=== PATIENT | male | born 1960 | race Caucasian/White ===

== ENCOUNTER 2017-01-01 08:48 | Emergency (ER) | payer OTHER ==
[~2017-01-01] VITALS: Ht 185.4 cm; Wt 70.0 kg
[~2017-01-01 08:48] MED LIST: CYCL-36 PO; IBUP800T23 PO; PERC5TAB12 PO
[2017-01-01 08:50] VITALS: BP 93/62; PULSE 109; RESP 17; TEMP 97.6; O2SAT 96
[2017-01-01 08:55] VITALS: BP 108/64; PULSE 106; RESP 20; O2SAT 99
[2017-01-01] MEDS ORDERED: HYDROmorphone HCL PF 1 MG/ML VIAL IV PUSH ONE ×3 (09:15→13:45)
[2017-01-01] MEDS ORDERED: SODIUM CHLORIDE 0.9% FLUSH 10 ML FLUSH IV FLUSH PRN (09:15)
[2017-01-01] MEDS ORDERED: ONDANSETRON HCL 4 MG/2 ML VIAL IV PUSH ONE (09:15)
--- NOTE | 2017-01-01 09:19 | PD ---
HPI Chief Complaint: Abdominal Pain Time Seen by Provider: 09:13 Travel History International Travel<30 days: No Contact w/Intl Traveler<30days: No Traveled to known affect area: No History of Present Illness HPI 56-year-old male with history of colon cancer diagnosed 2 months ago, not yet started on chemotherapy, presents to the ER today because of one and half weeks history of increased abdominal bloating, and 8 out of 10 abdominal pain starting today, nausea. He denies any vomiting, fevers, or other symptoms. He has not noticed any black stools or blood in the stools. He denies any other issues. Modifying Factors: None Associated Signs & Symptoms: Increased abdominal bloating and pain Risk Factors: Colon cancer recently diagnosed, stage IV PFSH Past Medical History Cancer: Yes (COLON) Diminished Hearing: No Musculoskeletal: Yes (BACK FX ) Tetanus Vaccination: < 5 Years Influenza Vaccination: No Past Surgical History Surgical History: No Previous Surgery Social History Alcohol Use: No Tobacco Use: No Substance Use: No Allergies-Medications (Allergen,Severity, Reaction): Coded Allergies: No Known Allergies (Unverified , 01/01/17) Reported Meds & Prescriptions Reported Meds & Active Scripts Active No Active Prescriptions or Reported Medications Review of Systems Except as stated in HPI: all other systems reviewed are Neg Physical Exam Narrative GENERAL: Middle age white male patient who is currently awake, alert, oriented 3. In mild distress. SKIN: Focused skin assessment warm/dry. HEAD: Atraumatic. Normocephalic. EYES: Pupils equal and round. No scleral icterus. No injection or drainage. ENT: No nasal bleeding or discharge. Mucous membranes pink and moist. NECK: Trachea midline. No JVD. CARDIOVASCULAR: Regular rate and rhythm. No murmur appreciated. RESPIRATORY: No accessory muscle use. Clear to auscultation. Breath sounds equal bilaterally. GASTROINTESTINAL: Abdomen diffusely tender without guarding or rebound, tensely distended. MUSCULOSKELETAL: No obvious deformities. No clubbing. No cyanosis. No edema. NEUROLOGICAL: Awake and alert. No obvious cranial nerve deficits. Motor grossly within normal limits. Normal speech. PSYCHIATRIC: Appropriate mood and affect; insight and judgment normal. Data Data Last Documented VS Vital Signs Date Time Temp Pulse Resp B/P Pulse Ox O2 Delivery O2 Flow Rate FiO2 01/01/17 13:44 98.3 111 16 105/71 96 Nasal Cannula 2 Orders Complete Blood Count With Diff (01/01/17 09:03) Comprehensive Metabolic Panel (01/01/17 09:03) Lipase (01/01/17 09:03) Urinalysis - C+S If Indicated (01/01/17 09:03) Iv Access Insert/Monitor (01/01/17 09:03) Ecg Monitoring (01/01/17 09:03) Oximetry (01/01/17 09:03) Sodium Chloride 0.9% Flush (Ns Flush) (01/01/17 09:15) Ct Abd/Pel W Iv Contrast(Rout) (01/01/17 09:13) Hydromorphone Pf Inj (Dilaudid Pf Inj) (01/01/17 09:15) Ondansetron Inj (Zofran Inj) (01/01/17 09:15) Sodium Chlorid 0.9% 500 Ml Inj (Ns 500 M (01/01/17 09:30) Hydromorphone Pf Inj (Dilaudid Pf Inj) (01/01/17 10:00) Iohexol 350 Inj (Omnipaque 350 Inj) (01/01/17 10:49) Hydromorphone Pf Inj (Dilaudid Pf Inj) (01/01/17 13:45) Labs Laboratory Tests Test 01/01/17 01/01/17 09:14 13:00 White Blood Count 4.2 TH/MM3 Red Blood Count 4.40 MIL/MM3 Hemoglobin 12.4 GM/DL Hematocrit 38.8 % Mean Corpuscular Volume 88.2 FL Mean Corpuscular Hemoglobin 28.3 PG Mean Corpuscular Hemoglobin 32.1 % Concent Red Cell Distribution Width 17.6 % Platelet Count 631 TH/MM3 Mean Platelet Volume 8.5 FL Neutrophils (%) (Auto) 48.0 % Lymphocytes (%) (Auto) 36.6 % Monocytes (%) (Auto) 8.8 % Eosinophils (%) (Auto) 5.6 % Basophils (%) (Auto) 1.0 % Neutrophils # (Auto) 2.0 TH/MM3 Lymphocytes # (Auto) 1.6 TH/MM3 Monocytes # (Auto) 0.4 TH/MM3 Eosinophils # (Auto) 0.2 TH/MM3 Basophils # (Auto) 0.0 TH/MM3 CBC Comment DIFF FINAL Differential Comment Sodium Level 134 MEQ/L Potassium Level 4.3 MEQ/L Chloride Level 101 MEQ/L Carbon Dioxide Level 20.8 MEQ/L Anion Gap 12 MEQ/L Blood Urea Nitrogen 7 MG/DL Creatinine 0.85 MG/DL Estimat Glomerular Filtration 93 ML/MIN Rate Random Glucose 109 MG/DL Calcium Level 9.6 MG/DL Total Bilirubin 1.4 MG/DL Aspartate Amino Transf 120 U/L (AST/SGOT) Alanine Aminotransferase 44 U/L (ALT/SGPT) Alkaline Phosphatase 688 U/L Total Protein 8.3 GM/DL Albumin 2.7 GM/DL Lipase 87 U/L Urine Color YELLOW Urine Turbidity CLEAR Urine pH 6.5 Urine Specific [place] GREATER THAN 1.050 Urine Protein 30 mg/dL Urine Glucose (UA) NEG mg/dL Urine Ketones NEG mg/dL Urine Occult Blood NEG Urine Nitrite NEG Urine Bilirubin NEG Urine Urobilinogen LESS THAN 2.0 MG/DL Urine Leukocyte Esterase NEG Urine RBC 3 /hpf Urine WBC LESS THAN 1 /hpf Urine Squamous Epithelial <1 /hpf Cells Urine Mucus FEW /lpf Microscopic Urinalysis Comment CULT NOT INDICATED MDM Medical Decision Making Medical Screen Exam Complete: Yes Emergency Medical Condition: Yes Medical Record Reviewed: Yes Interpretation(s) Laboratory Tests Test 01/01/17 01/01/17 09:14 13:00 Red Blood Count 4.40 MIL/MM3 (4.50-5.90) Hemoglobin 12.4 GM/DL (13.0-17.0) Hematocrit 38.8 % (39.0-51.0) Red Cell Distribution Width 17.6 % (11.6-17.2) Platelet Count 631 TH/MM3 (150-450) Monocytes (%) (Auto) 8.8 % (0.0-8.0) Eosinophils (%) (Auto) 5.6 % (0.0-4.0) Sodium Level 134 MEQ/L (136-145) Carbon Dioxide Level 20.8 MEQ/L (21.0-32.0) Random Glucose 109 MG/DL (74-106) Total Bilirubin 1.4 MG/DL (0.2-1.0) Aspartate Amino Transf 120 U/L (15-37) (AST/SGOT) Alkaline Phosphatase 688 U/L (45-117) Total Protein 8.3 GM/DL (6.4-8.2) Albumin 2.7 GM/DL (3.4-5.0) Urine Specific [place] GREATER THAN 1.050 (1.002-1.035) Urine Protein 30 mg/dL (NEG-TRACE) Urine Mucus FEW /lpf (OCC) Last 24 hours Impressions Abdomen/Pelvis CT 01/01/17 0913 Signed Impressions: Service Date/Time: Sunday, January 01, 2017 10:26 - CONCLUSION: Extensive metastatic disease to the lungs and liver with slight ascites and haziness of the mesentery as above. Steven Little MD Differential Diagnosis Increased abdominal bloating and painobstruction versus worsening ascites versus other acute intra-abdominal processes Narrative Course Lab work shows LFT elevations. CAT scan shows extensive metastases to the liver and lungs with a notable ascites. Findings were discussed with the patient and patient had been given IV fluids, pain medications and nausea medications in the ER. I have also talked to the patient regarding the ascites and possible need for drainage. At this point, have talked to the patient regarding admission for observation and pain control versus close outpatient follow-up. After receiving pain medication at 1 PM, he is feeling much improved , and states that he would prefer to follow-up as an outpatient with his oncologist. He should return for any worsening in pain, vomiting, fevers, or new symptoms as needed. The plan has discussed with him and he states understanding wants to follow-up as an outpatient. Diagnosis Primary Impression: Abdominal pain Additional Impression: Ascites Med/Other Pt SpecificInfo: Prescription(s) given Scripts Tramadol 50 Mg Tab50 Mg PO Q6H PRN (PAIN) #20 TAB Ref 0 Prov:Jorden Moore MD 01/01/17 Disposition: 01 DISCHARGE HOME Condition: Stable Jorden Moore MD Jan 01, 2017 09:19
[2017-01-01] MEDS ORDERED: SODIUM CHLORID 0.9% 500 ML INJ 500 ML IV ONE (09:30)
[2017-01-01 09:36] LABS: EOSINOPHIL # 0.2 TH/MM3 (0-0.4); EOSINOPHIL % 5.6 % (0.0-4.0); HEMATOCRIT 38.8 % (39.0-51.0); HEMO FLAGS DIFF FINAL; LYMPH % 36.6 % (9.0-44.0); LYMPHOCYTE # 1.6 TH/MM3 (1.0-4.8); MEAN CELL VOLUME 88.2 FL (80.0-100.0); MEAN CORPUSCULAR HEMOGLOBIN 28.3 PG (27.0-34.0); MEAN CORPUSCULAR HGB CONC 32.1 % (32.0-36.0); MONO % 8.8 % (0.0-8.0); PLATELET COUNT 631 TH/MM3 (150-450); RED CELL DISTRIBUTION WIDTH 17.6 % (11.6-17.2); WHITE BLOOD COUNT 4.2 TH/MM3 (4.0-11.0)
[2017-01-01 10:10] LABS: ALKALINE PHOSPHATASE 688 U/L (45-117); ALT (GPT) 44 U/L (12-78); ANION GAP 12 MEQ/L (5-15); AST (GOT) 120 U/L (15-37); BICARBONATE 20.8 MEQ/L (21.0-32.0); BLOOD UREA NITROGEN 7 MG/DL (7-18); CHLORIDE 101 MEQ/L (98-107); GLOMERULAR FILTRATION RATE 93 ML/MIN (>89); SODIUM (NA) 134 MEQ/L (136-145); TOTAL BILIRUBIN ADULT 1.4 MG/DL (0.2-1.0)
[2017-01-01 10:12] LABS: POTASSIUM 4.3 MEQ/L (3.5-5.1)
[2017-01-01 10:28] VITALS: BP 112/70; PULSE 114; RESP 16; TEMP 98.4; O2SAT 96
[2017-01-01] MEDS ORDERED: IOHEXOL 350 MG/ML 10 ML VIAL (for RAD DIAG) IV ONE (10:49)
--- NOTE | 2017-01-01 11:02 | RADRPT ---
EXAM DATE/TIME: 01/01/2017 10:26 [facility] COMPARISON: No previous studies available for comparison. INDICATIONS : Abdominal pain, nausea, general malaise. IV CONTRAST: 91 cc Omnipaque 350 (iohexol) IV ORAL CONTRAST: Prescribed oral contrast ingested. RADIATION DOSE: 9.96 CTDIvol (mGy) MEDICAL HISTORY : Carcinoma, colon. SURGICAL HISTORY : ENCOUNTER: Initial ACUITY: 1 day PAIN SCALE: 2/10 LOCATION: TECHNIQUE: Volumetric scanning of the abdomen and pelvis was performed. Using automated exposure control and ad justment of the mA and/or kV according to patient size, radiation dose was kept as low as reasonably achievable to obtain optimal diagnostic quality images. FINDINGS: There are too numerous to count nodules in both lung bases characteristic of metastatic disease the largest in the right lower lobe measures 1.2 cm in size. The liver is riddled with metastatic dis ease the largest measures 14 cm in size in the right hepatic lobe. There is ascites throughout the ab domen and pelvis to a slight degree possibly due to passive congestion with haziness of the mesentery , however early carcinomatosis is difficult to exclude. Questionable gallstones are present. The sple en, pancreas, kidneys, adrenals are unremarkable. CONCLUSION: Extensive metastatic disease to the lungs and liver with slight ascites and haziness of the mesentery as above. Steven Little MD on January 01, 2017 at 10:55 Board Certified Radiologist. This report was verified electronically.
[2017-01-01 13:21] LABS: BLOOD, URINE NEG (NEG); COMMENT (UR) CULT NOT INDICATED; CULTURE IF INDICATED CULT NOT INDICATED; GLUCOSE,URINE NEG (NEG); KETONE, URINE NEG (NEG); MUCUS URINE FEW /lpf (OCC); NITRITE,URINE NEG (NEG); PH, URINE 6.5 (5.0-8.5); SQUAMOUS EPITHELIAL CELL URINE <1 /hpf (0-5); URINE COLOR YELLOW (YELLW/STRAW)
[2017-01-01 13:44] VITALS: BP 105/71; PULSE 111; RESP 16; TEMP 98.3; O2SAT 96
[2017-01-01] MEDS ORDERED: TRAM50TA PO (14:02)
[2017-01-01] MEDS ORDERED: ZOFR4TAB3 SL (14:04)
[2017-01-01 14:47] VITALS: RESP 20
== END 2017-01-01 14:49 | disposition home or self-care (01) ==
LOC: NEPE 08:48
DX: C18.9 Malignant neoplasm of colon, unspecified (principal); C78.7 Secondary malignant neoplasm of liver and intrahepatic bile duct; C78.00 Secondary malignant neoplasm of unspecified lung
CPT/HCPCS: 74177; 80053; 81001; 83690; 85025; 96361; 96374; 96375; 96376; 99284; J1170; J2405; J7040; Q9967

== ENCOUNTER 2017-01-04 11:34 | Inpatient (IN) | payer OTHER ==
[2017-01-04] VITALS (7 sets, daily range): BP systolic 130–154; BP diastolic 86–93; PULSE 80–120; RESP 16–18; TEMP 97.7; O2SAT 92–98
[~2017-01-04] VITALS: Ht 185.4 cm; Wt 68.0 kg
[~2017-01-04 11:34] MED LIST changes: -CYCL-36 PO; -IBUP800T23 PO; -PERC5TAB12 PO; +TRAM50TA PO; +ZOFR4TAB3 SL
[2017-01-04] MEDS ORDERED: MORPHINE SULFATE 4 MG/ML INJ IV PUSH ONE (15:30)
[2017-01-04] MEDS ORDERED: SODIUM CHLORIDE 0.9% FLUSH 10 ML FLUSH IV FLUSH PRN ×2 (15:30→18:45)
[2017-01-04] MEDS ORDERED: ONDANSETRON HCL 4 MG/2 ML VIAL IVP ONE (15:30)
--- NOTE | 2017-01-04 15:41 | PD ---
HPI Chief Complaint: Abdominal Pain Time Seen by Provider: 15:19 Travel History International Travel<30 days: No Contact w/Intl Traveler<30days: No Traveled to known affect area: No History of Present Illness HPI The patient is a 56-year-old male who presents emergency department for lower abdominal pain and distention. The patient has a recent diagnosis of stage IV colon cancer via colonoscopy that was performed in [place], [place]. 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 However, the patient states he must come to [facility] for emergency care based on his insurance. The patient complains of increasing abdominal pain and distention, was advised last week when he was evaluated in the emergency Department that he may need to undergo paracentesis. Patient notes decreasing appetite, difficulty eating secondary to fullness, and increasing abdominal girth and distention. The patient states he is scheduled to start chemotherapy, oral, with his oncologist in the near future. The patient denies any fever, chills, or sweats. Symptoms are moderate, possibly exacerbated by history of cancer, and there are no current alleviating factors. PFSH Past Medical History Cancer: Yes (COLON) Diminished Hearing: No Musculoskeletal: Yes (BACK FX ) Social History Alcohol Use: No Tobacco Use: No Substance Use: No Allergies-Medications (Allergen,Severity, Reaction): Coded Allergies: No Known Allergies (Unverified , 01/04/17) Reported Meds & Prescriptions Reported Meds & Active Scripts Active Tramadol (Tramadol HCl) 50 Mg Tab 50 Mg PO Q6H PRN Review of Systems Except as stated in HPI: all other systems reviewed are Neg General / Constitutional: Positive: Weight Loss, No: Fever Cardiovascular: No: Chest Pain or Discomfort Respiratory: No: Shortness of Breath Gastrointestinal: Positive: Nausea, Abdominal Pain, Loss of Appetite, No: Vomiting, Diarrhea Musculoskeletal: Positive: Weakness, Edema Neurologic: Positive: Weakness, No: Dizziness Physical Exam Narrative GENERAL: Awake, alert, pleasant 56-year-old male who appears his stated age and is in no acute respiratory distress. SKIN: Focused skin assessment warm/dry. Mild jaundice. HEAD: Atraumatic. Normocephalic. EYES: Pupils equal and round. Mild icterus. ENT: No nasal bleeding or discharge. Mucous membranes pink and moist. NECK: Trachea midline. No JVD. CARDIOVASCULAR: Regular, tachycardic with a heart rate of 115. RESPIRATORY: No accessory muscle use. Clear to auscultation. Breath sounds equal bilaterally. GASTROINTESTINAL: Abdomen slightly distended, enlarged liver border. Positive fluid wave. MUSCULOSKELETAL: No obvious deformities. No clubbing. No cyanosis. Minimal edema. NEUROLOGICAL: Awake and alert. No obvious cranial nerve deficits. Motor grossly within normal limits. Normal speech. PSYCHIATRIC: Appropriate mood and affect; insight and judgment normal. Data Data Last Documented VS Vital Signs Date Time Temp Pulse Resp B/P Pulse Ox O2 Delivery O2 Flow Rate FiO2 01/04/17 16:36 118 16 154/89 96 Room Air 01/04/17 11:36 97.7 Orders Complete Blood Count With Diff (01/04/17 15:27) Comprehensive Metabolic Panel (01/04/17 15:27) Lipase (01/04/17 15:27) Prothrombin Time / Inr (Pt) (01/04/17 15:27) Act Partial Throm Time (Ptt) (01/04/17 15:27) Urinalysis - C+S If Indicated (01/04/17 15:27) Iv Access Insert/Monitor (01/04/17 15:27) Ecg Monitoring (01/04/17 15:27) Oximetry (01/04/17 15:27) Morphine Inj (Morphine Inj) (01/04/17 15:30) Ondansetron Inj (Zofran Inj) (01/04/17 15:30) Sodium Chloride 0.9% Flush (Ns Flush) (01/04/17 15:30) Ed Poc Ultrasound (01/04/17 15:27) Us Abdomen Lower Limited (01/04/17 ) Blood Culture (01/04/17 16:37) Lactic Acid (01/04/17 16:37) Ceftriaxone Inj (Rocephin Inj) (01/04/17 16:45) Sodium Chlor 0.9% 1000 Ml Inj (Ns 1000 M (01/04/17 17:00) Labs Laboratory Tests Test 01/04/17 15:35 White Blood Count 21.3 TH/MM3 Red Blood Count 4.74 MIL/MM3 Hemoglobin 13.4 GM/DL Hematocrit 41.7 % Mean Corpuscular Volume 88.1 FL Mean Corpuscular Hemoglobin 28.2 PG Mean Corpuscular Hemoglobin 32.1 % Concent Red Cell Distribution Width 17.2 % Platelet Count 624 TH/MM3 Mean Platelet Volume 7.8 FL Neutrophils (%) (Auto) 81.7 % Lymphocytes (%) (Auto) 7.4 % Monocytes (%) (Auto) 10.0 % Eosinophils (%) (Auto) 0.6 % Basophils (%) (Auto) 0.3 % Neutrophils # (Auto) 17.4 TH/MM3 Lymphocytes # (Auto) 1.6 TH/MM3 Monocytes # (Auto) 2.1 TH/MM3 Eosinophils # (Auto) 0.1 TH/MM3 Basophils # (Auto) 0.1 TH/MM3 CBC Comment DIFF FINAL Differential Comment Prothrombin Time 13.6 SEC Prothromb Time International 1.2 RATIO Ratio Activated Partial 29.1 SEC Thromboplast Time Sodium Level 130 MEQ/L Potassium Level 5.2 MEQ/L Chloride Level 95 MEQ/L Carbon Dioxide Level 22.8 MEQ/L Anion Gap 12 MEQ/L Blood Urea Nitrogen 31 MG/DL Creatinine 0.93 MG/DL Estimat Glomerular Filtration 83 ML/MIN Rate Random Glucose 82 MG/DL Calcium Level 11.6 MG/DL Protein Corrected Calcium 10.5 MG/DL Total Bilirubin 2.7 MG/DL Aspartate Amino Transf 301 U/L (AST/SGOT) Alanine Aminotransferase 130 U/L (ALT/SGPT) Alkaline Phosphatase 378 U/L Total Protein 8.8 GM/DL Albumin 2.6 GM/DL Lipase 77 U/L [facility] Medical Decision Making Medical Screen Exam Complete: Yes Emergency Medical Condition: Yes Medical Record Reviewed: Yes Interpretation(s) Laboratory Tests Test 01/04/17 15:35 White Blood Count 21.3 TH/MM3 Red Blood Count 4.74 MIL/MM3 Hemoglobin 13.4 GM/DL Hematocrit 41.7 % Mean Corpuscular Volume 88.1 FL Mean Corpuscular Hemoglobin 28.2 PG Mean Corpuscular Hemoglobin 32.1 % Concent Red Cell Distribution Width 17.2 % Platelet Count 624 TH/MM3 Mean Platelet Volume 7.8 FL Neutrophils (%) (Auto) 81.7 % Lymphocytes (%) (Auto) 7.4 % Monocytes (%) (Auto) 10.0 % Eosinophils (%) (Auto) 0.6 % Basophils (%) (Auto) 0.3 % Neutrophils # (Auto) 17.4 TH/MM3 Lymphocytes # (Auto) 1.6 TH/MM3 Monocytes # (Auto) 2.1 TH/MM3 Eosinophils # (Auto) 0.1 TH/MM3 Basophils # (Auto) 0.1 TH/MM3 CBC Comment DIFF FINAL Differential Comment Prothrombin Time 13.6 SEC Prothromb Time International 1.2 RATIO Ratio Activated Partial 29.1 SEC Thromboplast Time Sodium Level 130 MEQ/L Potassium Level 5.2 MEQ/L Chloride Level 95 MEQ/L Carbon Dioxide Level 22.8 MEQ/L Anion Gap 12 MEQ/L Blood Urea Nitrogen 31 MG/DL Creatinine 0.93 MG/DL Estimat Glomerular Filtration 83 ML/MIN Rate Random Glucose 82 MG/DL Calcium Level 11.6 MG/DL Protein Corrected Calcium 10.5 MG/DL Total Bilirubin 2.7 MG/DL Aspartate Amino Transf 301 U/L (AST/SGOT) Alanine Aminotransferase 130 U/L (ALT/SGPT) Alkaline Phosphatase 378 U/L Total Protein 8.8 GM/DL Albumin 2.6 GM/DL Lipase 77 U/L Differential Diagnosis Differential diagnosis includes ascites, colon cancer, hypoalbuminemia, hepatic dysfunction, cirrhosis, liver failure, renal failure. Narrative Course IV was established, labs are drawn and sent, and the patient was placed on cardiac telemetry monitoring and continuous pulse oximetry monitoring. Bedside ultrasound was performed which does reveal free fluid within the abdomen consistent with ascites. Therefore, formal ultrasound was ordered to evaluate if there was enough fluid for paracentesis. The patient was administer morphine and Zofran for his symptoms. The patient's white count is elevated at 21.3, AST nail tear elevated. Patient's BUN is 31, creatinine less than 1, consistent with dehydration. The patient does have ascites, has an elevated white count but no fever. However, does have abdominal pain, possibility of spontaneous bacterial peritonitis. Therefore, blood culture and lactic acid were sent to lab. Patient was administered Rocephin 2 g intravenously. I discussed the patient with the lighting engineering technician he states there is mild ascites, but not enough ascites for paracentesis by interventional radiology. Therefore, patient will need Rocephin until blood cultures have grown out. The on-call medical service was paged for admission. Procedures Procedure Narrative Bedside ultrasound was performed using a curvilinear probe. The patient had free fluid consistent with ascites an enlarged liver on ultrasound. The patient tolerated the procedure without difficulty and there was no obvious complications. Sepsis Criteria SIRS Criteria (2 or more): Heart rate over 90, WBC > 65940, < 4000 or > 10% bands Criteria Outcome: Meets SIRS criteria Physician Communication Physician Communication The on-call medical service was paged for admission. I discussed the patient with Dr. La who agrees with admission to Dr. Hong. Diagnosis Primary Impression: Abdominal pain Qualified Code: R10.84 - Generalized abdominal pain Additional Impressions: Ascites Qualified Code: R18.0 - Malignant ascites SIRS (systemic inflammatory response syndrome) Admitting Information Admitting Physician Requests: Admit Condition: Stable Bill Crenshaw MD Jan 04, 2017 15:41
[2017-01-04 16:01] LABS: AUTOMATED NEUTROPHIL # 17.4 TH/MM3 (1.8-7.7); BASOPHIL # 0.1 TH/MM3 (0-0.2); BASOPHIL % 0.3 % (0.0-2.0); EOSINOPHIL # 0.1 TH/MM3 (0-0.4); EOSINOPHIL % 0.6 % (0.0-4.0); HEMATOCRIT 41.7 % (39.0-51.0); HEMO FLAGS DIFF FINAL; LYMPH % 7.4 % (9.0-44.0); LYMPHOCYTE # 1.6 TH/MM3 (1.0-4.8); MEAN CELL VOLUME 88.1 FL (80.0-100.0); MEAN CORPUSCULAR HEMOGLOBIN 28.2 PG (27.0-34.0); MEAN CORPUSCULAR HGB CONC 32.1 % (32.0-36.0); NEUT % 81.7 % (16.0-70.0); PLATELET COUNT 624 TH/MM3 (150-450); RED BLOOD COUNT 4.74 MIL/MM3 (4.50-5.90); RED CELL DISTRIBUTION WIDTH 17.2 % (11.6-17.2); WHITE BLOOD COUNT 21.3 TH/MM3 (4.0-11.0)
[2017-01-04 16:14] LABS: APTT (PATIENT) 29.1 SEC (24.3-30.1); INTERNATIONAL NORMALIZED RATIO 1.2 RATIO; PROTHROMBIN TIME - PATIENT 13.6 SEC (9.8-11.6)
[2017-01-04 16:29] LABS: BICARBONATE 22.8 MEQ/L (21.0-32.0); CALCIUM-PROTEIN CORRECTED 10.5 MG/DL (8.5-10.1); POTASSIUM 5.2 MEQ/L (3.5-5.1); TOTAL BILIRUBIN ADULT 2.7 MG/DL (0.2-1.0)
[2017-01-04] MEDS ORDERED: cefTRIAXone INJ 2,000 MG in SODIUM CHLORIDE 0.9% INJ 100 ML IV ONE (16:45)
[2017-01-04] MEDS ORDERED: SODIUM CHLOR 0.9% 1000 ML INJ 1,000 ML IV ONE (17:00)
--- NOTE | 2017-01-04 17:08 | RADRPT ---
EXAM DATE/TIME: 01/04/2017 16:40 [facility] COMPARISON: CT ABDOMEN & PELVIS W CONTRAST, January 01, 2017, 10:26. INDICATIONS : Ascites. Metastatic disease with known lung and liver metastases. MEDICAL HISTORY : Ascites. Stage IV colon cancer with mets to liver. Back fracture. SURGICAL HISTORY : None. ENCOUNTER: Initial ACUITY: 1 day PAIN SCORE: 10/10 LOCATION: Abdomen. AREA EVALUATED: Abdominal quadrants. FINDINGS: Imaging of the abdomen and pelvis was performed to evaluate for ascites for possible paracentesis. A small amount of ascitic fluid is present with no large pockets. The liver is again noted to be enlarg ed and heterogeneous with multiple ill-defined masses. CONCLUSION: 1. Small amount of ascitic fluid present. 2. Enlarged liver with metastatic disease. Anthony Gallegos MD on January 04, 2017 at 17:05 Board Certified Radiologist. This report was verified electronically.
--- NOTE | 2017-01-04 18:00 | HHI.HP ---
[facility] Service Family Medicine Primary Care Physician Porter Lares MD Admission Diagnosis SIRS, abdominal pain, ascites, rule out SBP Diagnoses: International Travel<30 Days: No Contact w/Intl Traveler<30days: No Known Affected Area: No History of Present Illness This is a 56-year-old male newly diagnosed with stage IV colon cancer approximately 1.5 months ago. 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 He has known metastatic disease to his lungs and liver. He has had constant abdominal pain since being diagnosed and has been taking tramadol and Percocets to control his pain. He was recently evaluated at [facility] on January 01 with the complaint of 8 out of 10 abdominal pain and nausea. At that time a CT abdomen and pelvis was performed which showed extensive metastatic disease to the lungs and liver with slight ascites. He states his pain has been getting worse over the past couple of days. It's a constant 7 out of 10 nonradiating pain. He has not had a bowel movement in 3 days. He typically has a bowel movement daily. He states he is passing gas, but is not as much as he should be. He denies nausea or vomiting. No fever or chills. However, he does have persistent night sweats. He does have a living will and has filled out a 5 wishes document and he states he gave this to [facility] to be scanned into the EMR. (Asad La MD R2) Review of Systems Constitutional: COMPLAINS OF: Night Sweats, DENIES: Fever, Chills Eyes: DENIES: Blurred vision, Diplopia Respiratory: DENIES: Apneas, Cough Cardiovascular: DENIES: Chest pain, Palpitations Gastrointestinal: COMPLAINS OF: Abdominal pain, Constipation, DENIES: Black stools, Bloody stools, Diarrhea, Nausea, Vomiting Neurologic: DENIES: Abnormal gait, Headache Psychiatric: COMPLAINS OF: Anxiety, DENIES: Confusion (Asad La MD R2) Past Family Social History Past Medical History Stage 4 colon cancer (Oncologist- Dr. Mccann); GI is Dr. Mortensen - colonoscopy 1.5 weeks ago, tumor in colon. Diagnosed in 1.5 months ago. 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 Lives in [place] with mother. Brother Clement is here as well. Tobacco 1/4 PPD from age [age]. Alcohol- none recently. (Asad La MD R2) Physical Exam Vital Signs Vital Signs Date Time Temp Pulse Resp B/P Pulse Ox O2 Delivery O2 Flow Rate FiO2 01/04/17 16:36 118 16 154/89 96 Room Air 01/04/17 15:36 114 16 130/93 96 Room Air 01/04/17 15:32 120 18 97 Room Air 01/04/17 11:36 97.7 117 18 136/86 97 Physical Exam GENERAL: This is a pleasant white male. Cachectic appearing. Sitting upright. Distended abdomen. No acute distress. SKIN: No rashes, ecchymoses or lesions. Cool and dry. HEAD: Atraumatic. Normocephalic. No temporal or scalp tenderness. EYES: Pupils equal round and reactive. Extraocular motions intact. No scleral icterus. No injection or drainage. ENT: Nose without bleeding, purulent drainage or septal hematoma. Throat without erythema, tonsillar hypertrophy or exudate. Uvula midline. Airway patent. NECK: Trachea midline. No JVD or lymphadenopathy. Supple, nontender, no meningeal signs. CARDIOVASCULAR: Tachycardic rate and rhythm without murmurs, gallops, or rubs. RESPIRATORY: Clear to auscultation. Breath sounds equal bilaterally. No wheezes , rales, or rhonchi. GASTROINTESTINAL: Abdomen moderately distended. Nontender after morphine. No guarding or rebound. Bowel sounds present. MUSCULOSKELETAL: Extremities without clubbing, cyanosis, or edema. No joint tenderness, effusion, or edema noted. No calf tenderness. Negative Homans sign bilaterally. NEUROLOGICAL: Awake and alert. Cranial nerves II through XII intact. Motor and sensory grossly within normal limits. Five out of 5 muscle strength in all muscle groups. Normal speech. Laboratory Laboratory Tests Test 01/04/17 01/04/17 15:35 17:23 White Blood Count 21.3 Red Blood Count 4.74 Hemoglobin 13.4 Hematocrit 41.7 Mean Corpuscular Volume 88.1 Mean Corpuscular Hemoglobin 28.2 Mean Corpuscular Hemoglobin 32.1 Concent Red Cell Distribution Width 17.2 Platelet Count 624 Mean Platelet Volume 7.8 Neutrophils (%) (Auto) 81.7 Lymphocytes (%) (Auto) 7.4 Monocytes (%) (Auto) 10.0 Eosinophils (%) (Auto) 0.6 Basophils (%) (Auto) 0.3 Neutrophils # (Auto) 17.4 Lymphocytes # (Auto) 1.6 Monocytes # (Auto) 2.1 Eosinophils # (Auto) 0.1 Basophils # (Auto) 0.1 CBC Comment DIFF FINAL Differential Comment Prothrombin Time 13.6 Prothromb Time International 1.2 Ratio Activated Partial 29.1 Thromboplast Time Sodium Level 130 Potassium Level 5.2 Chloride Level 95 Carbon Dioxide Level 22.8 Anion Gap 12 Blood Urea Nitrogen 31 Creatinine 0.93 Estimat Glomerular Filtration 83 Rate Random Glucose 82 Calcium Level 11.6 Protein Corrected Calcium 10.5 Total Bilirubin 2.7 Aspartate Amino Transf 301 (AST/SGOT) Alanine Aminotransferase 130 (ALT/SGPT) Alkaline Phosphatase 378 Total Protein 8.8 Albumin 2.6 Lipase 77 Lactic Acid Level 2.2 Date/Time Procedure Status Source Growth 01/04/17 17:27 Aerobic Blood Culture Received Blood Peripheral Pending 01/04/17 17:27 Anaerobic Blood Culture Received Blood Peripheral Pending (Asad La MD R2) Result Diagram: 01/04/17 1535 01/04/17 1535 Imaging Last Impressions Abdomen Ultrasound 01/04/17 0000 Signed Impressions: Service Date/Time: Wednesday, January 04, 2017 16:40 - CONCLUSION: 1. Small amount of ascitic fluid present. 2. Enlarged liver with metastatic disease. Anthony Gallegos MD (Asad La MD R2) Assessment and Plan Assessment and Plan 56-year-old male with known stage IV metastatic colon cancer to his lungs and liver presents with intractable abdominal pain, ascites, leukocytosis. Concern is for small bowel obstruction versus spontaneous bacterial peritonitis versus other. Treatment as below. Code Status Full Discussed Condition With Dr. Gely Crenshaw (Asad La MD R2) Attending Attestation THIS CASE WAS DISCUSSED WITH THE RESIDENT PHYSICIANS. I HAVE REVIEWED THE RECORD AND AGREE WITH THE ABOVE NOTE AND PLAN OF CARE WAS DISCUSSED. I HAVE AUTHORIZED THE ORDER FOR ADMISSION TO AN IN-PATIENT STATUS. (Larry Hong MD) Problem List: (1) Abdominal pain Status: Acute Plan: Ultrasound abdomen shows small amount of ascitic fluid. Enlarged liver with metastatic disease. Differential includes small bowel obstruction and spontaneous bacterial peritonitis. CT abdomen and pelvis ordered 2 g ceftriaxone IV given in the ER. Continue 2 g ceftriaxone IV every 24 hours daily for SBP coverage (converted from recommended cefotaxime which the hospital does not cover) Blood cultures pending Pain control: Morphine 2 mg IV every 3 hours when necessary pain 3-5, Morphine 4 mg IV every 2 hours pain 6-10, Dilaudid 1 mg IV every 3 hours when necessary breakthrough (2) History of colon cancer, stage IV Status: Acute Plan: Medical oncology consulted (3) Ascites Status: Acute Plan: Gastroenterology consulted for new onset ascites There was not enough fluid at the bedside to perform a paracentesis successfully. Interventional radiology consult to evaluate for paracentesis; if able to adequately obtain fluid, we will send fluid for analysis including cell count, culture IV antibiotics as above (4) Elevated liver enzymes Status: Acute Plan: Likely secondary to metastatic colon cancer to the liver. Hepatitis profile pending (5) FEN/PPX Status: Acute Plan: Fluids: Normal saline at 120 miles per hour Electrolytes: Monitor and replace when necessary Nutrition: Regular diet Prophylaxis: Lovenox 40 mg subcutaneous every 24 hours. (Asad La MD R2) Physician Certification 2 Midnight Certification Type: Admission for Inpatient Services Order for Inpatient Services The services are ordered in accordance with Medicare regulations or non- Medicare payer requirements, as applicable. In the case of services not specified as inpatient-only, they are appropriately provided as inpatient services in accordance with the 2-midnight benchmark. Estimated LOS (days): 2 days is the estimated time the patient will need to remain in the hospital, assuming treatment plan goals are met and no additional complications. Post-Hospital Plan: Not yet determined (Asad La MD R2) Problem Qualifiers (1) Abdominal pain: Qualified Code: R10.84 - Generalized abdominal pain (2) Ascites: Qualified Code: R18.0 - Malignant ascites Asad La MD R2 Jan 04, 2017 18:00 Larry Hong MD Jan 05, 2017 10:51
[2017-01-04] MEDS ORDERED: ONDANSETRON HCL 4 MG/2 ML VIAL IVP PRN (18:45)
[2017-01-04] MEDS ORDERED: NALOXONE HCL 0.4 MG/ML AMP IV PRN ×2 (18:45→19:00)
[2017-01-04] MEDS ORDERED: MAGNESIUM HYDROXIDE SUSP 30 ML CUP PO PRN (18:45)
[2017-01-04] MEDS: SODIUM CHLOR 0.9% 1000 ML INJ 1,000 ML IV SCH (18:48)
[2017-01-04] MEDS ORDERED: HYDROmorphone HCL PF 1 MG/ML VIAL IV PRN (19:00)
[2017-01-04] MEDS ORDERED: DIATRIZOATE MEGLUM/DIATRIZOATE SOD 9 ML CUP ONE (19:27)
[2017-01-04] MEDS ORDERED: DIATRIZOATE MEGLUM/DIATRIZOATE SOD 9 ML CUP PO ONE (19:45)
[2017-01-04] MEDS ORDERED: MORPHINE SULFATE 4 MG/ML INJ IV PRN (20:00)
[2017-01-04] MEDS ORDERED: ENOXAPARIN SODIUM 40 MG/0.4 ML SYRINGE SQ SCH (20:00)
[2017-01-04] MEDS: MORPHINE SULFATE 4 MG/ML INJ IV PRN (21:22)
[2017-01-04] MEDS: SODIUM CHLORIDE 0.9% FLUSH 10 ML FLUSH IV FLUSH SCH (21:23)
[2017-01-04] MEDS ORDERED: IOHEXOL 350 MG/ML 10 ML VIAL (for RAD DIAG) IV ONE (22:27)
--- NOTE | 2017-01-04 22:38 | RADRPT ---
EXAM DATE/TIME: 01/04/2017 22:07 [facility] COMPARISON: CT ABDOMEN & PELVIS W CONTRAST, January 01, 2017, 10:26. INDICATIONS : Diffuse abdominal pain. IV CONTRAST: 95 cc Omnipaque 350 (iohexol) IV ORAL CONTRAST: Prescribed oral contrast ingested. RADIATION DOSE: 9.96 CTDIvol (mGy) MEDICAL HISTORY : Carcinoma, colon. Metastatic disease to lungs and liver. SURGICAL HISTORY : None. ENCOUNTER: Initial ACUITY: 1 month PAIN SCALE: 8/10 LOCATION: Bilateral abdomen TECHNIQUE: Volumetric scanning of the abdomen and pelvis was performed. Using automated exposure control and ad justment of the mA and/or kV according to patient size, radiation dose was kept as low as reasonably achievable to obtain optimal diagnostic quality images. FINDINGS: Patient has known metastatic disease to the liver and lungs. There are innumerable masses seen throug hout the liver parenchyma which has a nodular contour. There is ascites. Pancreas, spleen, adrenal gl ands, bilateral kidneys are unremarkable. Stomach unremarkable. Urinary bladder and prostate are unre markable. There is no evidence of bowel obstruction. Cholelithiasis suspected. Innumerable lung nodul es are present with consolidation at the left lung base now seen. A calcified hematoma at the left jeffery ng base is noted. Review of bone windows demonstrate no worrisome osseous lesions. CONCLUSION: 1. Extensive metastatic disease to the lungs and liver with moderate ascites. Korey Morrow MD on January 04, 2017 at 22:34 Board Certified Radiologist. This report was verified electronically.
[2017-01-05 04:00] VITALS: BP 129/83; PULSE 114; RESP 18; TEMP 96; O2SAT 95
[2017-01-05] MEDS: MORPHINE SULFATE 4 MG/ML INJ IV PRN ×2 (04:28→10:21)
[2017-01-05] MEDS: SODIUM CHLOR 0.9% 1000 ML INJ 1,000 ML IV SCH ×2 (04:28→11:25)
[2017-01-05 05:46] LABS: AUTOMATED NEUTROPHIL # 12.3 TH/MM3 (1.8-7.7); BASOPHIL # 0.1 TH/MM3 (0-0.2); BASOPHIL % 0.4 % (0.0-2.0); EOSINOPHIL # 0.2 TH/MM3 (0-0.4); EOSINOPHIL % 1.5 % (0.0-4.0); HEMATOCRIT 33.7 % (39.0-51.0); HEMO FLAGS DIFF FINAL; LYMPH % 9.5 % (9.0-44.0); LYMPHOCYTE # 1.5 TH/MM3 (1.0-4.8); MEAN CELL VOLUME 87.5 FL (80.0-100.0); MEAN CORPUSCULAR HEMOGLOBIN 28.6 PG (27.0-34.0); MEAN CORPUSCULAR HGB CONC 32.7 % (32.0-36.0); MONO % 11.9 % (0.0-8.0); NEUT % 76.7 % (16.0-70.0); PLATELET COUNT 485 TH/MM3 (150-450); RED BLOOD COUNT 3.85 MIL/MM3 (4.50-5.90); WHITE BLOOD COUNT 16.1 TH/MM3 (4.0-11.0)
[2017-01-05 06:04] LABS: ALKALINE PHOSPHATASE 270 U/L (45-117); ALT (GPT) 106 U/L (12-78); ANION GAP 12 MEQ/L (5-15); AST (GOT) 249 U/L (15-37); BICARBONATE 21.3 MEQ/L (21.0-32.0); BLOOD UREA NITROGEN 24 MG/DL (7-18); CHLORIDE 100 MEQ/L (98-107); GLOMERULAR FILTRATION RATE 126 ML/MIN (>89); POTASSIUM 4.3 MEQ/L (3.5-5.1); SODIUM (NA) 133 MEQ/L (136-145); TOTAL BILIRUBIN ADULT 2.1 MG/DL (0.2-1.0)
[2017-01-05] MEDS: SODIUM CHLORIDE 0.9% FLUSH 10 ML FLUSH IV FLUSH SCH (08:09)
[2017-01-05 08:50] VITALS: BP 122/85; PULSE 104; RESP 21; TEMP 98.8; O2SAT 97
--- NOTE | 2017-01-05 10:50 | HHI.FPPN ---
Subjective Remarks No acute events overnight and patient feels relatively well this morning. Abdominal pain is significantly improved with the IV morphine. He denies any abdominal pain at this time and last received morphine approximately 2 hours ago. He does feel hungry this morning and endorses a good appetite. He denies any nausea or vomiting, denies any fevers or chills, denies any chest pain or palpitations. He is not currently passing flatus or had a bowel movement in the last several days. In summary this is a 56-year-old male who was recently diagnosed with colon cancer is apparently stage IV with metastasis to the liver and to the lungs. He has an oncologist from [place] that he follows with and was scheduled to begin chemotherapy later this week per the patient. States that he has had a full workup including a PET scan and that he has discussed with his oncologist treatments to "get back to normal" and it is his understanding that he may be "cured". He presented to the emergency department yesterday with a constant 7/ 10 nonradiating abdominal pain that has been slowly getting worse. The pain is constant, right sided, and sharp in nature. He denies any fevers or chills. He denies any nausea or vomiting. He states that he has been passing flatus but has not had a bowel movement in several days. Past Medical History Stage 4 colon cancer (Oncologist- Dr. Mccann); GI is Dr. Mortensen - colonoscopy 1.5 weeks ago, tumor in colon. Diagnosed in 1.5 months ago. 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 Lives in [place] with mother. Brother Clement is here as well. Tobacco 1/4 PPD from age [age]. Alcohol- none recently. Objective Vitals Vital Signs Date Time Temp Pulse Resp B/P Pulse Ox O2 Delivery O2 Flow Rate FiO2 01/05/17 08:50 98.8 104 21 122/85 97 01/05/17 04:37 16 01/05/17 04:00 96.0 114 18 129/83 95 01/04/17 21:21 95 16 132/92 92 01/04/17 20:39 80 17 148/86 98 Room Air 01/04/17 19:00 102 18 154/89 94 Room Air 01/04/17 16:36 118 16 154/89 96 Room Air 01/04/17 15:36 114 16 130/93 96 Room Air 01/04/17 15:32 120 18 97 Room Air 01/04/17 11:36 97.7 117 18 136/86 97 Result Diagram: 01/05/17 0458 01/05/17 0458 Imaging Last 48 hours Impressions Abdomen/Pelvis CT 01/04/17 0000 Signed Impressions: Service Date/Time: Wednesday, January 04, 2017 22:07 - CONCLUSION: 1. Extensive metastatic disease to the lungs and liver with moderate ascites. Korey Morrow MD Abdomen Ultrasound 01/04/17 0000 Signed Impressions: Service Date/Time: Wednesday, January 04, 2017 16:40 - CONCLUSION: 1. Small amount of ascitic fluid present. 2. Enlarged liver with metastatic disease. Anthony Gallegos MD Objective Remarks GENERAL: This is a pleasant white male. Cachectic appearing with a distended abdomen. Sitting upright. SKIN: No rashes, ecchymoses or lesions. Cool and dry. HEAD: Atraumatic. Normocephalic. EYES: Pupils equal round and reactive. Extraocular motions intact. No scleral icterus. No injection or drainage. CARDIOVASCULAR: Tachycardic rate and rhythm without murmurs, gallops, or rubs. RESPIRATORY: Clear to auscultation. Breath sounds equal bilaterally. No wheezes , rales, or rhonchi. GASTROINTESTINAL: Abdomen moderately distended. Significantly enlarged liver that is mildly tender to palpation. MUSCULOSKELETAL: Extremities without clubbing, cyanosis, or edema. NEUROLOGICAL: Awake and alert. Cranial nerves II through XII intact. Normal speech. A/P Assessment and Plan 56-year-old male with known stage IV metastatic colon cancer to his lungs and liver presents with intractable abdominal pain, ascites, leukocytosis. Concern is for small bowel obstruction versus spontaneous bacterial peritonitis versus other. Treatment as below. Problem List: (1) Abdominal pain Status: Acute Plan: Likely secondary to metastatic disease with abdominal distention and ascites - Ultrasound abdomen shows small amount of ascitic fluid. Enlarged liver with metastatic disease. Gastroenterology has been consulted for further evaluation of new onset ascites and possible partial bowel obstruction Currently patient treated for suspected SBP as below: Rocephin 2 g IV every 24 hours -WBC is initially elevated to 21.3, decreased to 16.1 today - Patient remains afebrile and abdominal pain improves with morphine, unlikely SBP and will discontinue antibiotics if patient remains afebrile today CT abdomen/pelvis performed due to concern for obstruction- shows extensive metastatic disease to the lungs and liver with moderate ascites Blood cultures pending Pain control: Morphine 2 mg IV every 3 hours when necessary pain 3-5 Morphine 4 mg IV every 2 hours pain 6-10 Dilaudid 1 mg IV every 3 hours when necessary breakthrough (2) History of colon cancer, stage IV Status: Acute Plan: We will contact patient's oncologist in [place] to discuss outpatient treatment options and goals - Treatment options likely would be palliative - We have placed a consult for palliative care to assist in treatment goals (3) Ascites Status: Acute Plan: Gastroenterology consulted for new onset ascites There was not enough fluid at the bedside to perform a paracentesis successfully. IV antibiotics as above (4) Elevated liver enzymes Status: Acute Plan: Likely secondary to metastatic colon cancer to the liver. Hepatitis profile pending (5) FEN/PPX Status: Acute Plan: Fluids: Normal saline at 120 miles per hour Electrolytes: Monitor and replace when necessary Nutrition: Regular diet Prophylaxis: Lovenox 40 mg subcutaneous every 24 hours. Problem Qualifiers (1) Abdominal pain: Qualified Code: R10.84 - Generalized abdominal pain (2) Ascites: Qualified Code: R18.0 - Malignant ascites Larry Hong MD Jan 05, 2017 10:50
--- NOTE | 2017-01-05 10:52 | PD.CONS ---
HPI History of Present Illness This is a 56 year old [gentleman] came to the ER for abdominal pain. He started having pain morning in lower abdomen and right side, came to ER night and paracentesis was discussed but it was decided he could go home for the weekend. Wednesday the pain was unchanged so he came back to the ER. At this moment his pain is 6-7/10, worse on right side and lower abdomen. He is complaining of bloating and distension as well that has worsened the last few days and he has not been urinating as much. He does have colon ca and has been seeing oncologist, planning on doing chemo but hasn't started yet. He was diagnosed with metastatic colon ca after a CT abdomen in the ER at [facility]. He has mets to liver and lung. He knew something was wrong when he started losing weight last November 2015 , has lost 55 lbs in the last year. He hasn't been eating b/c he is afraid of bloating and has been having infrequent BM. His last BM was 2-3 days ago. No n/v, diarrhea. (Bisi Saenz) PFSH Past Medical History colon ca mets to lung, liver Past Surgical History none (Bisi Saenz) Coded Allergies: No Known Allergies (Unverified , 01/04/17) Family History Brain ca- father Social History Former moderate to heavy drinker, no ETOH in last 3 months occasional Marijuana use, in past, not currently No tobacco use (Bisi Saenz) Review of Systems Constitutional: COMPLAINS OF: Fatigue, Weight loss, Night Sweats, DENIES: Fever Endocrine: DENIES: Polyuria Eyes: DENIES: Blurred vision Ears, nose, mouth, throat: DENIES: Hearing loss Respiratory: COMPLAINS OF: Sputum production, Shortness of breath, DENIES: Cough Cardiovascular: COMPLAINS OF: Lower Extremity Edema, DENIES: Chest pain Gastrointestinal: COMPLAINS OF: Abdominal pain, Constipation, Swelling of Abdomen, DENIES: Black stools, Bloody stools, Diarrhea, Nausea, Vomiting Musculoskeletal: DENIES: Joint pain, Muscle aches Integumentary: DENIES: Pruritus, Rash, Jaundice Hematologic/lymphatic: DENIES: Bruising Neurologic: COMPLAINS OF: Localized weakness Psychiatric: DENIES: Mood changes (Bisi Saenz) GI Exam Vitals I&O Vital Signs Date Time Temp Pulse Resp B/P Pulse Ox O2 Delivery O2 Flow Rate FiO2 01/05/17 08:50 98.8 104 21 122/85 97 01/05/17 04:37 16 01/05/17 04:00 96.0 114 18 129/83 95 01/04/17 21:21 95 16 132/92 92 01/04/17 20:39 80 17 148/86 98 Room Air 01/04/17 19:00 102 18 154/89 94 Room Air 01/04/17 16:36 118 16 154/89 96 Room Air 01/04/17 15:36 114 16 130/93 96 Room Air 01/04/17 15:32 120 18 97 Room Air 01/04/17 11:36 97.7 117 18 136/86 97 Imaging Last Impressions Abdomen/Pelvis CT 01/04/17 0000 Signed Impressions: Service Date/Time: Wednesday, January 04, 2017 22:07 - CONCLUSION: 1. Extensive metastatic disease to the lungs and liver with moderate ascites. Korey Morrow MD Abdomen Ultrasound 01/04/17 0000 Signed Impressions: Service Date/Time: Wednesday, January 04, 2017 16:40 - CONCLUSION: 1. Small amount of ascitic fluid present. 2. Enlarged liver with metastatic disease. Anthony Gallegos MD Laboratory Test 01/04/17 01/04/17 01/05/17 15:35 17:23 04:58 White Blood Count 21.3 TH/MM3 16.1 TH/MM3 Red Blood Count 4.74 MIL/MM3 3.85 MIL/MM3 Hemoglobin 13.4 GM/DL 11.0 GM/DL Hematocrit 41.7 % 33.7 % Mean Corpuscular Volume 88.1 FL 87.5 FL Mean Corpuscular Hemoglobin 28.2 PG 28.6 PG Mean Corpuscular Hemoglobin 32.1 % 32.7 % Concent Red Cell Distribution Width 17.2 % 17.0 % Platelet Count 624 TH/MM3 485 TH/MM3 Mean Platelet Volume 7.8 FL 7.6 FL Neutrophils (%) (Auto) 81.7 % 76.7 % Lymphocytes (%) (Auto) 7.4 % 9.5 % Monocytes (%) (Auto) 10.0 % 11.9 % Eosinophils (%) (Auto) 0.6 % 1.5 % Basophils (%) (Auto) 0.3 % 0.4 % Neutrophils # (Auto) 17.4 TH/MM3 12.3 TH/MM3 Lymphocytes # (Auto) 1.6 TH/MM3 1.5 TH/MM3 Monocytes # (Auto) 2.1 TH/MM3 1.9 TH/MM3 Eosinophils # (Auto) 0.1 TH/MM3 0.2 TH/MM3 Basophils # (Auto) 0.1 TH/MM3 0.1 TH/MM3 CBC Comment DIFF FINAL DIFF FINAL Differential Comment Prothrombin Time 13.6 SEC Prothromb Time International 1.2 RATIO Ratio Activated Partial 29.1 SEC Thromboplast Time Sodium Level 130 MEQ/L 133 MEQ/L Potassium Level 5.2 MEQ/L 4.3 MEQ/L Chloride Level 95 MEQ/L 100 MEQ/L Carbon Dioxide Level 22.8 MEQ/L 21.3 MEQ/L Anion Gap 12 MEQ/L 12 MEQ/L Blood Urea Nitrogen 31 MG/DL 24 MG/DL Creatinine 0.93 MG/DL 0.65 MG/DL Estimat Glomerular Filtration 83 ML/MIN 126 ML/MIN Rate Random Glucose 82 MG/DL 74 MG/DL Calcium Level 11.6 MG/DL 10.3 MG/DL Protein Corrected Calcium 10.5 MG/DL Total Bilirubin 2.7 MG/DL 2.1 MG/DL Aspartate Amino Transf 301 U/L 249 U/L (AST/SGOT) Alanine Aminotransferase 130 U/L 106 U/L (ALT/SGPT) Alkaline Phosphatase 378 U/L 270 U/L Total Protein 8.8 GM/DL 7.0 GM/DL Albumin 2.6 GM/DL 2.1 GM/DL Lipase 77 U/L Lactic Acid Level 2.2 mmol/L Date/Time Procedure Status Source Growth 01/04/17 17:27 Aerobic Blood Culture Received Blood Peripheral Pending 01/04/17 17:27 Anaerobic Blood Culture Received Blood Peripheral Pending Physical Examination HEENT: EOMI; normocephalic; atraumatic; no jaundice. Throat is clear. CHEST: Chest is clear to auscultation and percussion. CARDIAC: Regular rate and rhythm with no murmur gallop or rubs. ABDOMEN: Soft, distended, dull to percussion, tender; hepatomegaly; bowel sounds hypoactive. EXTREMITIES: No clubbing, cyanosis, +2 BLE pitting edema. SKIN: Normal; no rash; no jaundice. LAB SCIENTIST: No focal deficits; alert and oriented times three. (Bisi Saenz) Assessment and Plan Plan ASSESSMENT: - ascites. Small amount. 01/04/17 CT----> showed extensive metastatic disease to lungs and liver with moderate ascites. US 01/04/17 ---->small amount ascitic fluid is present with no large pockets. Insufficient fluid to do paracentesis. - Elevated LFTs, likely due to liver metastases 01/04/17 CT----> innumerable masses seen throughout liver parenchyma which has a nodular contour, there is ascites. US 01/04/17 --> liver again noted to be enlarged and heterogeneous with multilple ill-defined masses. - abdominal pain - right side, lower abdominal. Distension and discomfort more likely due to enlarged liver than ascites. 01/04/17 CT------> innumerable masses seen throughout liver parenchyma which has nodular contour, there is ascites, pancreas, spleen unremarkable, choleithiasis suspected. - leukocytosis. will d/c poss of paracentesis to r/o SBP with radiology but per US insuff ascites to do paracentesis. Appears pt had 1 dose of ceftriaxone. WBC 16.1 down from 21.3 yesterday. PLAN: - [place]OR[place] - pain management - recommendations per oncology - supportive care - GI will sign off This pt was seen by myself and Dr. Garza and this note is written on his behalf. (Bisi Saenz) Physician Comments Patient seen and examined Patient with underlying colon cancer with extensive metastases to the lungs and the liver the liver is humongous and at this point in time not much to add from a GI perspective Agree with pain management supportive care nutritional support We will defer to oncology and attending physician regarding further workup and management that at this point I doubt SBP We will sign off (Subhash Garza MD) Bisi Saenz Jan 05, 2017 10:52 Subhash Garza MD Jan 05, 2017 20:54
[2017-01-05 11:20] VITALS: BP 114/80; PULSE 110; RESP 18; TEMP 98.8; O2SAT 95
--- NOTE | 2017-01-05 12:09 | HHI.FPPN ---
Addendum to progress note ADDENDUM Additional information Spoke with patients oncologist Dr. Ortega who is well aware of the patient. I informed him of his admittance to [facility] and updated him on his clinical condition. Dr Ortega stated they have plans to under go treatment to shrink the tumors. He stated that he has had conversations with the patient that this is not a curable disease, and the prognosis is poor. Treatment is set to being soon. Informed Dr. Ortega of patients abdominal pain and that he has some ascites, not enough to tap. He encouraged pain management and the rest of his care would take place as an outpatient. Maeve Ocasio MD R3 Jan 05, 2017 12:09
[2017-01-05] MEDS ORDERED: HYDR-3533 PO (14:10)
--- NOTE | 2017-01-05 14:12 | HHI.DCPOC ---
Discharge Care Plan Diagnosis: (1) Abdominal pain (2) Colon cancer (3) Metastases to the liver Goals to Promote Your Health * To prevent worsening of your condition and complications * To maintain your health at the optimal level Directions to Meet Your Goals Take your medications as prescribed Follow your dietary instruction Follow activity as directed Keep your appointments as scheduled Take your immunizations and boosters as scheduled If your symptoms worsen call your PCP, if no PCP go to Urgent Care Center or Emergency Room Smoking is Dangerous to Your Health. Avoid second hand smoke Call the 24-hour hour crisis hotline for domestic abuse at Bailey Monahan MD Jan 05, 2017 14:12
[2017-01-05] MEDS ORDERED: FURO40TA PO (14:37)
[2017-01-05] MEDS ORDERED: POTA10TA2 PO (14:37)
[2017-01-05] MEDS ORDERED: cefTRIAXone INJ 2,000 MG in SODIUM CHLORIDE 0.9% INJ 100 ML IV SCH (17:00)
== END 2017-01-05 15:43 | disposition home or self-care (01) | DRG 948 ==
LOC: NEPC 11:34 → NEDA 16:56 → NEPFCDU 20:56
PROVIDERS: ADMIT Family Medicine; ATTEND Family Medicine
DX: G89.3 Neoplasm related pain (acute) (chronic) (principal); C78.00 Secondary malignant neoplasm of unspecified lung; C78.7 Secondary malignant neoplasm of liver and intrahepatic bile duct; C18.9 Malignant neoplasm of colon, unspecified; R18.8 Other ascites; Z87.891 Personal history of nicotine dependence
CPT/HCPCS: 74177; 76705; 80053; 80074; 83605; 83690; 85025; 85610; 85730; 87040; 96374; 96375; J0696; J1650; J2270; J2405; J7030; Q9963; Q9967

== ENCOUNTER 2017-01-22 14:16 | Inpatient (IN) | payer OTHER ==
[~2017-01-22] VITALS: Ht 185.4 cm; Wt 66.3 kg
[2017-01-22] VITALS (7 sets, daily range): BP systolic 86–104; BP diastolic 55–74; PULSE 89–106; RESP 15–24; TEMP 96.4–97.6; O2SAT 88–99
[~2017-01-22 14:16] MED LIST changes: +FURO40TA PO; +HYDR-3533 PO; +POTA10TA2 PO; -ZOFR4TAB3 SL
--- NOTE | 2017-01-22 14:22 | PD ---
Physical Exam Date Seen by Provider: January 22, 2017 Time Seen by Provider: 14:20 Narrative 57 YOWM C/O CONSTIPATION AND ABD PAIN 05/23. POS NAUSEA. H/O STAGE COLORECTAL CA. PT OF DR TRI cardoza for bed asignment Data Data Last Documented VS Vital Signs Date Time Temp Pulse Resp B/P Pulse Ox O2 Delivery O2 Flow Rate FiO2 01/22/17 14:17 97.6 106 24 103/72 88 Room Air [facility] Medical Record Reviewed: No Supervised Visit with LISA: Demetrius Vargas January 22, 2017 14:22
[2017-01-22] MEDS ORDERED: SODIUM CHLORIDE 0.9% FLUSH 10 ML FLUSH IV FLUSH PRN ×2 (15:15→19:30)
[2017-01-22] MEDS ORDERED: MORPHINE SULFATE 4 MG/ML INJ IV PUSH ONE (15:45)
[2017-01-22] MEDS ORDERED: ONDANSETRON HCL 4 MG/2 ML VIAL IV PUSH ONE (15:45)
[2017-01-22 16:00] LABS: BASOPHIL # 0.1 TH/MM3 (0-0.2); BASOPHIL % 0.5 % (0.0-2.0); EOSINOPHIL # 0.1 TH/MM3 (0-0.4); EOSINOPHIL % 0.5 % (0.0-4.0); HEMATOCRIT 43.4 % (39.0-51.0); HEMO FLAGS DIFF FINAL; LYMPH % 7.4 % (9.0-44.0); LYMPHOCYTE # 1.2 TH/MM3 (1.0-4.8); MEAN CELL VOLUME 91.5 FL (80.0-100.0); MEAN CORPUSCULAR HEMOGLOBIN 30.1 PG (27.0-34.0); MEAN CORPUSCULAR HGB CONC 32.9 % (32.0-36.0); MONO % 5.6 % (0.0-8.0); PLATELET COUNT 475 TH/MM3 (150-450); RED BLOOD COUNT 4.75 MIL/MM3 (4.50-5.90); RED CELL DISTRIBUTION WIDTH 22.6 % (11.6-17.2); WHITE BLOOD COUNT 16.2 TH/MM3 (4.0-11.0)
[2017-01-22 16:12] LABS: APTT (PATIENT) 27.3 SEC (24.3-30.1); INTERNATIONAL NORMALIZED RATIO 1.3 RATIO; PROTHROMBIN TIME - PATIENT 14.6 SEC (9.8-11.6)
[2017-01-22 16:36] LABS: ANION GAP 12 MEQ/L (5-15); AST (GOT) 184 U/L (15-37); BICARBONATE 28.3 MEQ/L (21.0-32.0); BLOOD UREA NITROGEN 17 MG/DL (7-18); CHLORIDE 92 MEQ/L (98-107); GLOMERULAR FILTRATION RATE 103 ML/MIN (>89); POTASSIUM 4.5 MEQ/L (3.5-5.1); SODIUM (NA) 132 MEQ/L (136-145)
[2017-01-22 16:58] LABS: ALKALINE PHOSPHATASE 1039 U/L (45-117); ALT (GPT) 68 U/L (12-78); TOTAL BILIRUBIN ADULT 5.1 MG/DL (0.2-1.0)
--- NOTE | 2017-01-22 17:44 | PD ---
HPI Chief Complaint: GI Complaint Time Seen by Provider: 15:06 Travel History International Travel<30 days: No Contact w/Intl Traveler<30days: No Traveled to known affect area: No History of Present Illness HPI This is a 57-year-old male who has a history of metastatic colon cancer currently receiving radiation therapy in [place] who presents to the emergency department with 2 weeks of abdominal distention, moderate severity abdominal pain, associated with several episodes of vomiting today. He says he's vomited clear substance. His family is concerned he has not been eating or drinking. They've tried multiple different laxatives and they don't think it is helping. He does see an oncologist but is not currently on chemotherapy because of his performance status but they're hopeful that he will regain his strength. PFSH Past Medical History Cancer: Yes (Liver, Lung) Diminished Hearing: No Musculoskeletal: Yes (BACK FX ) Social History Alcohol Use: No (Former) Tobacco Use: No Substance Use: No Allergies-Medications (Allergen,Severity, Reaction): Coded Allergies: No Known Allergies (Unverified , 01/22/17) Reported Meds & Prescriptions Reported Meds & Active Scripts Active Potassium Chloride ER (Potassium Chloride) 10 Meq Tab 20 Meq PO DAILY Furosemide 40 Mg Tab 40 Mg PO DAILY Lortab (Hydrocodone-Acetaminophen) 5-325 Mg Tab 1-2 Tab PO Q6H PRN Tramadol (Tramadol HCl) 50 Mg Tab 50 Mg PO Q6H PRN Review of Systems Except as stated in HPI: all other systems reviewed are Neg Physical Exam Narrative GENERAL: Cachectic, chronically ill-appearing SKIN: Dry with skin tenting HEAD: Atraumatic. Normocephalic. EYES: Pupils equal and round. No injection or drainage. ENT: Dry mucous membranes NECK: Trachea midline. CARDIOVASCULAR: Regular rate and rhythm. No murmur appreciated. RESPIRATORY: Clear to auscultation. Breath sounds equal bilaterally. GASTROINTESTINAL: Abdomen soft, distended, positive fluid wave, diffusely mildly tender to palpation with no rebound or guarding MUSCULOSKELETAL: No obvious deformities. NEUROLOGICAL: Awake and alert. No obvious cranial nerve deficits. Moving all extremities. PSYCHIATRIC: Appropriate mood and affect; insight and judgment normal. Data Data Last Documented VS Vital Signs Date Time Temp Pulse Resp B/P Pulse Ox O2 Delivery O2 Flow Rate FiO2 01/22/17 18:08 92 16 103/56 97 01/22/17 15:26 Room Air 01/22/17 14:17 97.6 Orders Complete Blood Count With Diff (01/22/17 15:11) Comprehensive Metabolic Panel (01/22/17 15:11) Prothrombin Time / Inr (Pt) (01/22/17 15:11) Act Partial Throm Time (Ptt) (01/22/17 15:11) Urinalysis - C+S If Indicated (01/22/17 15:11) Ct Abd/Pel W Iv Contrast(Rout) (01/22/17 15:11) Iv Access Insert/Monitor (01/22/17 15:11) Ecg Monitoring (01/22/17 15:11) Oximetry (01/22/17 15:11) Sodium Chloride 0.9% Flush (Ns Flush) (01/22/17 15:15) Ct Pulmonary Angiogram (01/22/17 ) Morphine Inj (Morphine Inj) (01/22/17 15:45) Ondansetron Inj (Zofran Inj) (01/22/17 15:45) Iohexol 350 Inj (Omnipaque 350 Inj) (01/22/17 17:53) Ceftriaxone Inj (Rocephin Inj) (01/22/17 18:30) Labs Laboratory Tests Test 01/22/17 15:25 White Blood Count 16.2 TH/MM3 Red Blood Count 4.75 MIL/MM3 Hemoglobin 14.3 GM/DL Hematocrit 43.4 % Mean Corpuscular Volume 91.5 FL Mean Corpuscular Hemoglobin 30.1 PG Mean Corpuscular Hemoglobin 32.9 % Concent Red Cell Distribution Width 22.6 % Platelet Count 475 TH/MM3 Mean Platelet Volume 8.3 FL Neutrophils (%) (Auto) 86.0 % Lymphocytes (%) (Auto) 7.4 % Monocytes (%) (Auto) 5.6 % Eosinophils (%) (Auto) 0.5 % Basophils (%) (Auto) 0.5 % Neutrophils # (Auto) 14.0 TH/MM3 Lymphocytes # (Auto) 1.2 TH/MM3 Monocytes # (Auto) 0.9 TH/MM3 Eosinophils # (Auto) 0.1 TH/MM3 Basophils # (Auto) 0.1 TH/MM3 CBC Comment DIFF FINAL Differential Comment Prothrombin Time 14.6 SEC Prothromb Time International 1.3 RATIO Ratio Activated Partial 27.3 SEC Thromboplast Time Sodium Level 132 MEQ/L Potassium Level 4.5 MEQ/L Chloride Level 92 MEQ/L Carbon Dioxide Level 28.3 MEQ/L Anion Gap 12 MEQ/L Blood Urea Nitrogen 17 MG/DL Creatinine 0.77 MG/DL Estimat Glomerular Filtration 103 ML/MIN Rate Random Glucose 78 MG/DL Calcium Level 10.5 MG/DL Total Bilirubin 5.1 MG/DL Aspartate Amino Transf 184 U/L (AST/SGOT) Alanine Aminotransferase 68 U/L (ALT/SGPT) Alkaline Phosphatase 1039 U/L Total Protein 7.7 GM/DL Albumin 2.0 GM/DL MDM Medical Decision Making Medical Screen Exam Complete: Yes Emergency Medical Condition: Yes Interpretation(s) Mild tachycardia, hypoxic Leukocytosis improved from prior Hypercalcemia Bilirubin is 5.1 Alkaline phosphatase is 1000 Last 24 hours Impressions Abdomen/Pelvis CT 01/22/17 1511 Signed Impressions: Service Date/Time: Sunday, January 22, 2017 17:46 - CONCLUSION: Innumerable metastases in the liver. Abundant ascites. Suspicious soft tissue density mass in the region of the cecum Colton Stallings MD CT Angiography 01/22/17 0000 Signed Impressions: Service Date/Time: Sunday, January 22, 2017 17:50 - CONCLUSION: No evidence of pulmonary embolism Colton Stallings MD Differential Diagnosis Constipation, bowel obstruction, ascites, SBP Narrative Course This is a 57 -year-old male who has a history of metastatic colon cancer who presents the emergency department with increasing abdominal distention and constipation associated with vomiting that's been worsening over the past 2 weeks. Patient was placed on a monitor and an IV was established. Labs demonstrate a leukocytosis which is slightly improved since prior. Patient has jaundice and an elevated alkaline phosphatase consistent with his liver metastases. CT imaging demonstrates impressive liver enlargement with metastases as well as ascites. Patient continues to want to be aggressive with his care. I told him at this time given chemotherapy is not an option he should focus on symptom control. I think he would benefit from a paracentesis. Patient will be admitted overnight for diagnostic and therapeutic paracentesis as well as pain control. Diagnosis Primary Impression: Ascites Qualified Code: R18.0 - Malignant ascites Admitting Information Admitting Physician Requests: Yolanda Sanchez MD January 22, 2017 17:44
[2017-01-22] MEDS ORDERED: IOHEXOL 350 MG/ML 10 ML VIAL (for RAD DIAG) IV ONE (17:53)
--- NOTE | 2017-01-22 18:05 | RADRPT ---
EXAM DATE/TIME: 01/22/2017 17:50 [facility] COMPARISON: CT ABDOMEN & PELVIS W CONTRAST, January 22, 2017, 17:46. INDICATIONS : Lung metastastes . Evaluate for emboli. IV CONTRAST: 100 cc Omnipaque 350 (iohexol) IV ; Cumulative dose for multiple exams. RADIATION DOSE: 23.73 CTDIvol (mGy) MEDICAL HISTORY : Metastatic, colon. SURGICAL HISTORY : None. ENCOUNTER: Initial ACUITY: 3 days PAIN SCALE: 5/10 LOCATION: lower chest TECHNIQUE: Volumetric scanning of the chest was performed using a pulmonary embolism protocol MIP images were re constructed. Using automated exposure control and adjustment of the mA and/or kV according to patien t size, radiation dose was kept as low as reasonably achievable to obtain optimal diagnostic quality images. FINDINGS: PULMONARY ARTERIES: No filling defects are seen in the pulmonary arteries through the segmental level. LUNGS: Innumerable bilateral pulmonary nodules. Consolidative change in the left lower lobe. PLEURAE: Small bilateral effusions. MEDIASTINUM: There is good visualization of the great vessels of the middle mediastinum. No evidence of mediastin al or hilar adenopathy/mass. MUSCULOSKELETAL: Within normal limits for patient age. MISCELLANEOUS: Widespread hepatic metastases. Ascites. CONCLUSION: No evidence of pulmonary embolism Colton Stallings MD on January 22, 2017 at 18:00 Board Certified Radiologist. This report was verified electronically.
--- NOTE | 2017-01-22 18:20 | RADRPT ---
EXAM DATE/TIME: 01/22/2017 17:46 [facility] COMPARISON: No previous studies available for comparison. INDICATIONS : Abdomen pain with constipation for 3 days. IV CONTRAST: 100 cc Omnipaque 350 (iohexol) IV ; Cumulative dose for multiple exams. ORAL CONTRAST: No oral contrast ingested. RADIATION DOSE: 8.75 CTDIvol (mGy) MEDICAL HISTORY : Metastatic, colon. SURGICAL HISTORY : None. ENCOUNTER: Initial ACUITY: 3 days PAIN SCALE: 7/10 LOCATION: Bilateral abdomen TECHNIQUE: Volumetric scanning of the abdomen and pelvis was performed. Using automated exposure control and ad justment of the mA and/or kV according to patient size, radiation dose was kept as low as reasonably achievable to obtain optimal diagnostic quality images. FINDINGS: LOWER LUNGS: Innumerable lung base nodules. LIVER: Liver is almost completely replaced with low density masses. Large cyst in the dome of segment VII an d smaller cysts are the inferior liver edge. No biliary ductal dilatation. SPLEEN: Normal size without lesion. PANCREAS: Within normal limits. KIDNEYS: Normal in size and shape. There is no mass, stone or hydronephrosis. ADRENAL GLANDS: Within normal limits. VASCULAR: There is no aortic aneurysm. BOWEL/MESENTERY: 3.8 cm soft tissue density mass in the region of the cecum worrisome for colon primary. Abundant asci camacho. No evidence of obstruction. ABDOMINAL WALL: Within normal limits. RETROPERITONEUM: There is no lymphadenopathy. BLADDER: No wall thickening or mass. REPRODUCTIVE: Within normal limits. INGUINAL: There is no lymphadenopathy or hernia. MUSCULOSKELETAL: Within normal limits for patient age. CONCLUSION: Innumerable metastases in the liver. Abundant ascites. Suspicious soft tissue density mass in the reg ion of the cecum Colton Stallings MD on January 22, 2017 at 18:13 Board Certified Radiologist. This report was verified electronically.
[2017-01-22] MEDS ORDERED: cefTRIAXone INJ 1,000 MG in SODIUM CHLORIDE 0.9% INJ 100 ML IV ONE (18:30)
[2017-01-22] MEDS ORDERED: SODIUM CHLORIDE 0.9% FLUSH 10 ML FLUSH IVF PRN (19:15)
[2017-01-22] MEDS ORDERED: ACETAMINOPHEN 325 MG TAB PO PRN (19:30)
[2017-01-22] MEDS ORDERED: HYDROmorphone HCL PF 1 MG/ML VIAL IV PRN (19:30)
[2017-01-22] MEDS ORDERED: RESP: ALBUTEROL 2.5 MG/IPRATROPIUM 0.5 MG NEB (PRN) NEB (19:30)
[2017-01-22] MEDS ORDERED: BISACODYL 10 MG SUPP RECTAL PRN (19:30)
--- NOTE | 2017-01-22 19:40 | HHI.HP ---
HPI Service [facility] Primary Care Physician Porter Lares MD Admission Diagnosis ascites Diagnoses: (1) SIRS (systemic inflammatory response syndrome) Diagnosis: Principal (2) Intractable abdominal pain Diagnosis: Principal (3) Colon cancer Diagnosis: Principal (4) Ascites Diagnosis: Principal (5) Cachexia Diagnosis: Principal (6) Hypoxia Diagnosis: Principal (7) Hypercalcemia Diagnosis: Principal Travel History International Travel<30 Days: No Contact w/Intl Traveler <30 Da: No Traveled to Known Affected Are: No History of Present Illness This is a 57-year-old male with recently diagnosed Metastatic Colon CA who presented to the ER w/ complaints of severe abdominal pain, worsening distention and nausea/vomiting. Much of history obtained from Sister as pt too weak to speak. Sister states pt diagnosed in October 2016, has been following w/ Dr. Wheat in [place], s/p Radiation yesterday w/ next session on Wednesday, however presented to [place] secondary to severe pain and intractable nausea/ vomiting. Also reports difficulty taking PO w/ significant amount of weight loss. On arrival, BP 103/72, HR 106, O2 sat 88% on RA, Afebrile. WBC 16.2, elevated neutrophil count. Chemistry essentially unremarkable. Calcium 10.5. ALP 1039. INR 1.3. CTA Pulm negative for PE. CT Abd/Pelvis with innumerable metastasis in the liver, abundant ascites, suspicious soft tissue density mass in the region of the cecum. S/p analgesics and antiemetics in ER. Review of Systems Except as stated in HPI: all other systems reviewed are Neg ROS: 14 point review of systems otherwise negative. Past Family Social History Past Medical History PMH: Metastatic Colon CA Past Surgical History PAST SURGICAL HISTORY: None Allergies: Coded Allergies: No Known Allergies (Unverified , 01/22/17) Family History PAST FAMILY HISTORY: Reviewed. No h/o DM or CAD Social History PAST SOCIAL HISTORY: Negative for alcohol, tobacco or drugs. Physical Exam Vital Signs Vital Signs Date Time Temp Pulse Resp B/P Pulse Ox O2 Delivery O2 Flow Rate FiO2 01/22/17 18:08 92 16 103/56 97 01/22/17 15:26 104 21 104/74 93 Room Air 01/22/17 14:17 97.6 106 24 103/72 88 Room Air Physical Exam PE: GENERAL: Significantly cachectic, thin, chronically ill-appearing white male in no acute distress. Very weak. Sister at bedside. HEENT: PERRLA, EOMI. No scleral icterus or conjunctival pallor. No lid lag or facial droop. CARDIOVASCULAR: Regular rate and rhythm. No obvious murmurs to auscultation. No chest tenderness to palpation. RESPIRATORY: No obvious rhonchi or wheezing. Clear to auscultation. Breath sounds equal bilaterally. GASTROINTESTINAL: Abdomen soft, generalized tenderness to palpation, significant ascites. BS normal. MUSCULOSKELETAL: Extremities without clubbing, cyanosis, or edema. No obvious deformities. NEUROLOGICAL: Awake, alert and oriented x4. No focal neurologic deficits. Moving both upper and lower extremities spontaneously. Laboratory Laboratory Tests Test 01/22/17 15:25 White Blood Count 16.2 Red Blood Count 4.75 Hemoglobin 14.3 Hematocrit 43.4 Mean Corpuscular Volume 91.5 Mean Corpuscular Hemoglobin 30.1 Mean Corpuscular Hemoglobin 32.9 Concent Red Cell Distribution Width 22.6 Platelet Count 475 Mean Platelet Volume 8.3 Neutrophils (%) (Auto) 86.0 Lymphocytes (%) (Auto) 7.4 Monocytes (%) (Auto) 5.6 Eosinophils (%) (Auto) 0.5 Basophils (%) (Auto) 0.5 Neutrophils # (Auto) 14.0 Lymphocytes # (Auto) 1.2 Monocytes # (Auto) 0.9 Eosinophils # (Auto) 0.1 Basophils # (Auto) 0.1 CBC Comment DIFF FINAL Differential Comment Prothrombin Time 14.6 Prothromb Time International 1.3 Ratio Activated Partial 27.3 Thromboplast Time Sodium Level 132 Potassium Level 4.5 Chloride Level 92 Carbon Dioxide Level 28.3 Anion Gap 12 Blood Urea Nitrogen 17 Creatinine 0.77 Estimat Glomerular Filtration 103 Rate Random Glucose 78 Calcium Level 10.5 Total Bilirubin 5.1 Aspartate Amino Transf 184 (AST/SGOT) Alanine Aminotransferase 68 (ALT/SGPT) Alkaline Phosphatase 1039 Total Protein 7.7 Albumin 2.0 Result Diagram: 01/22/17 1525 01/22/17 1525 Assessment and Plan Problem List: (1) SIRS (systemic inflammatory response syndrome) ICD Code: R65.10 Status: Acute (2) Intractable abdominal pain ICD Code: R10.9 Status: Acute (3) Colon cancer ICD Code: C18.9 Status: Acute (4) Ascites ICD Code: R18.8 Status: Acute (5) Hypoxia ICD Code: R09.02 Status: Acute (6) Hypercalcemia ICD Code: E83.52 Status: Acute (7) Cachexia ICD Code: R64 Status: Acute Assessment and Plan A/P: 1. SIRS: WBC 16 w/ elevated neutrophil, HR 106, unclear etiology, concern for possible SBP w/ abundant ascites. Check Blood Cultures, start empiric Rocephin for possible SBP. Caution w/ IVF in light of ascites/liver mets. 2. Colon CA: w/ Mets to Liver. Diagnosed Oct 2016, s/p Radiation yesterday w / next session on Wednesday, following w/ doctors in [place]. Will likely need to hold off on further treatment for now in light of possible infection/SBP. Plan is to follow up w/ doctors as outpatient upon discharge. CT Abd/Pelvis w/ innumerable metastasis to liver, abundant ascites, suspicious soft tissue density mass in region of cecum, images reviewed by me. 3. Ascites: Progressive. CT Abd/Pelvis w/ abundant ascites as above. Sister reports previous attempts at paracentesis have been unsuccessful as not enough to drain. Will consult IR for Diagnostic & Therapeutic Paracentesis for possible SBP, cultures, cytology, cell count. 4. Hypercalcemia: Ca 10.5, will obtain corrected Ca, IVF as needed, caution w / ascites/liver dysfunction. 5. Hypoxia: O2 sat 88% on arrival, currently 97% on RA. CTA Pulm negative for PE, images reviewed by me. Will monitor. DuoNeb prn for SOB. 6. Cachexia: Severe Malnutrition. Decreased PO intake. Will consult Costume Maker for further recommendations. 7. DVT Prophylaxis: SCD/Teds. 8. Social work for d/c planning as needed. 9. Case discussed w/ ER physician at length Physician Certification 2 Midnight Certification Type: Admission for Inpatient Services Order for Inpatient Services The services are ordered in accordance with Medicare regulations or non- Medicare payer requirements, as applicable. In the case of services not specified as inpatient-only, they are appropriately provided as inpatient services in accordance with the 2-midnight benchmark. Estimated LOS (days): 2 days is the estimated time the patient will need to remain in the hospital, assuming treatment plan goals are met and no additional complications. Post-Hospital Plan: Not yet determined Problem Qualifiers (1) Ascites: Qualified Code: R18.0 - Malignant ascites Pat Lopez MD January 22, 2017 19:40
[2017-01-22] MEDS ORDERED: SODIUM CHLORIDE 0.9% FLUSH 10 ML FLUSH IV FLUSH SCH (21:00)
[2017-01-22] MEDS: SODIUM CHLORIDE 0.9% FLUSH 10 ML FLUSH IV FLUSH SCH (21:00)
[2017-01-23] VITALS (9 sets, daily range): BP systolic 88–108; BP diastolic 53–80; PULSE 91–120; RESP 15–20; TEMP 96.1–97.6; O2SAT 94–100
[2017-01-23] MEDS ORDERED: SODIUM CHLOR 0.9% 1000 ML INJ 1,000 ML IV SCH (00:45)
[2017-01-23] MEDS ORDERED: SODIUM CHLORID 0.9% 500 ML INJ 500 ML IV ONE (00:45)
[2017-01-23] MEDS: cefTRIAXone INJ 2,000 MG in SODIUM CHLORIDE 0.9% INJ 100 ML IV SCH ×3 (01:10→17:12)
[2017-01-23] MEDS: ONDANSETRON HCL 4 MG/2 ML VIAL IVP PRN (03:43)
[2017-01-23 07:45] LABS: AUTOMATED NEUTROPHIL # 13.4 TH/MM3 (1.8-7.7); BASOPHIL # 0.1 TH/MM3 (0-0.2); BASOPHIL % 0.4 % (0.0-2.0); EOSINOPHIL # 0.1 TH/MM3 (0-0.4); EOSINOPHIL % 0.9 % (0.0-4.0); HEMATOCRIT 32.6 % (39.0-51.0); HEMO FLAGS DIFF FINAL; LYMPH % 6.8 % (9.0-44.0); LYMPHOCYTE # 1.1 TH/MM3 (1.0-4.8); MEAN CELL VOLUME 90.8 FL (80.0-100.0); MEAN CORPUSCULAR HEMOGLOBIN 30.3 PG (27.0-34.0); MEAN CORPUSCULAR HGB CONC 33.3 % (32.0-36.0); MONO % 6.9 % (0.0-8.0); PLATELET COUNT 301 TH/MM3 (150-450); RED BLOOD COUNT 3.59 MIL/MM3 (4.50-5.90); RED CELL DISTRIBUTION WIDTH 21.8 % (11.6-17.2); WHITE BLOOD COUNT 15.8 TH/MM3 (4.0-11.0)
[2017-01-23 07:50] LABS: INTERNATIONAL NORMALIZED RATIO 1.4 RATIO; PROTHROMBIN TIME - PATIENT 15.3 SEC (9.8-11.6)
[2017-01-23 08:35] LABS: ALKALINE PHOSPHATASE 862 U/L (45-117); ALT (GPT) 55 U/L (12-78); ANION GAP 10 MEQ/L (5-15); AST (GOT) 161 U/L (15-37); BICARBONATE 28.5 MEQ/L (21.0-32.0); BLOOD UREA NITROGEN 15 MG/DL (7-18); CALCIUM-PROTEIN CORRECTED 10.3 MG/DL (8.5-10.1); CHLORIDE 98 MEQ/L (98-107); GLOMERULAR FILTRATION RATE 163 ML/MIN (>89); POTASSIUM 3.8 MEQ/L (3.5-5.1); SODIUM (NA) 136 MEQ/L (136-145)
[2017-01-23] MEDS: HYDROmorphone HCL PF 1 MG/ML VIAL IV PRN ×3 (10:14→17:12)
[2017-01-23] MEDS: SODIUM CHLORIDE 0.9% FLUSH 10 ML FLUSH IV FLUSH SCH ×2 (10:16→21:00)
--- NOTE | 2017-01-23 16:06 | HHI.PR ---
Subjective Remarks Patient is in bed, she appears critically ill. He has slight abdominal pain. No fever or chills or night. He feels very weak. No nausea or vomiting. Has decreased appetite. Says his belly is getting bigger. Objective Vitals Vital Signs Date Time Temp Pulse Resp B/P Pulse Ox O2 Delivery O2 Flow Rate FiO2 01/23/17 11:50 96.3 91 20 102/75 99 01/23/17 09:18 93 01/23/17 07:50 96.7 95 20 97/53 98 01/23/17 04:00 96.6 91 15 94/57 100 01/23/17 00:00 96.2 94 16 88/55 99 01/22/17 22:23 89 01/22/17 21:30 96.4 95 16 86/55 99 01/22/17 20:25 95 15 100/57 96 Nasal Cannula 01/22/17 19:25 97 Nasal Cannula 2.00 01/22/17 18:08 92 16 103/56 97 I/O 01/22/17 01/22/17 01/22/17 01/23/17 01/23/17 01/23/17 06:59 14:59 22:59 06:59 14:59 22:59 Intake Total 120 ml Balance 120 ml Intake Oral 120 ml Result Diagram: 01/23/17 0725 01/23/17 0725 Imaging Last Impressions Abdomen/Pelvis CT 01/22/17 1511 Signed Impressions: Service Date/Time: Sunday, January 22, 2017 17:46 - CONCLUSION: Innumerable metastases in the liver. Abundant ascites. Suspicious soft tissue density mass in the region of the cecum Colton Stallings MD CT Angiography 01/22/17 0000 Signed Impressions: Service Date/Time: Sunday, January 22, 2017 17:50 - CONCLUSION: No evidence of pulmonary embolism Colton Stallings MD Objective Remarks GENERAL: Significantly cachectic, thin, chronically ill-appearing white male in no acute distress. Very weak. Sister at bedside. HEENT: PERRLA, EOMI. No scleral icterus or conjunctival pallor. No lid lag or facial droop. CARDIOVASCULAR: Regular rate and rhythm. No obvious murmurs to auscultation. No chest tenderness to palpation. RESPIRATORY: No obvious rhonchi or wheezing. Clear to auscultation. Breath sounds equal bilaterally. GASTROINTESTINAL: Abdomen soft, generalized tenderness to palpation, significant ascites. BS normal. MUSCULOSKELETAL: Extremities without clubbing, cyanosis, or edema. No obvious deformities. NEUROLOGICAL: Awake, alert and oriented x4. No focal neurologic deficits. Moving both upper and lower extremities spontaneously. A/P Problem List: (1) SIRS (systemic inflammatory response syndrome) ICD Code: R65.10 Status: Acute (2) Intractable abdominal pain ICD Code: R10.9 Status: Acute (3) Colon cancer ICD Code: C18.9 Status: Acute (4) Ascites ICD Code: R18.8 Status: Acute (5) Hypoxia ICD Code: R09.02 Status: Acute (6) Hypercalcemia ICD Code: E83.52 Status: Acute (7) Cachexia ICD Code: R64 Status: Acute Assessment and Plan SIRS: WBC 16 w/ elevated neutrophil, HR 106, unclear etiology, concern for possible SBP w/ abundant ascites. Check Blood Cultures, start empiric Rocephin for possible SBP. Caution w/ IVF in light of ascites/liver mets. Colon CA: w/ Mets to Liver. Diagnosed Oct 2016, s/p Radiation yesterday w/ next session on Wednesday, following w/ doctors in [place]. Will likely need to hold off on further treatment for now in light of possible infection/SBP. Plan is to follow up w/ doctors as outpatient upon discharge. CT Abd/Pelvis w/ innumerable metastasis to liver, abundant ascites, suspicious soft tissue density mass in region of cecum, images reviewed by me. Ascites: Progressive. CT Abd/Pelvis w/ abundant ascites as above. Sister reports previous attempts at paracentesis have been unsuccessful as not enough to drain. Will consult IR for Diagnostic & Therapeutic Paracentesis for possible SBP, cultures, cytology, cell count. Hypercalcemia: Ca 10.5, will obtain corrected Ca, IVF as needed, caution w/ ascites/liver dysfunction. Hypoxia: O2 sat 88% on arrival, currently 97% on RA. CTA Pulm negative for PE , images reviewed by me. Will monitor. DuoNeb prn for SOB. Cachexia: Severe Malnutrition. Decreased PO intake. Will consult Pantograph Setter for further recommendations. DVT Prophylaxis: SCD/Teds. CM for d/c planning as needed. Discussed with the patient, nurse Problem Qualifiers (1) Ascites: Qualified Code: R18.0 - Malignant ascites Cosma,Kadnis MD January 23, 2017 16:06
--- NOTE | 2017-01-23 16:31 | RADRPT ---
EXAM DATE/TIME: 01/23/2017 12:49 [facility] COMPARISON: No previous studies available for comparison. INDICATIONS : Ascites. MEDICAL HISTORY : Liver cancer. Lung cancer. SURGICAL HISTORY : No documented surgeries. ENCOUNTER: Initial ACUITY: 1 day PAIN SCORE: 2/10 LOCATION: Left lower quadrant FLUID: Total volume of 4,700 cc of clear, green fluid was removed. Fluid was sent to lab for ordered studies. Post procedure scanning reveals no hematoma or other complication. TECHNIQUE: 1. Ultrasound guidance for abdominal paracentesis. 2. Paracentesis. The risks, benefits, and alternatives to ultrasound guided paracentesis were explained to the patient in detail including the risk of bleeding and infection. Written and verbal informed consent was obt ained. With the patient on the ultrasound table, ultrasound imaging was used to select the most appropriate approach for paracentesis. Overlying skin was prepped and draped in the usual sterile fashion and wi th a local anesthetic, a dermatotomy was made with an 11 blade scalpel. A 6 Wolof [id number] ca theter was introduced into the peritoneal cavity and fluid was collected. The patient tolerated the procedure well and left the ultrasound suite in stable condition. CONCLUSION: Uncomplicated ultrasound guided paracentesis. Ulisses Austin MD on January 23, 2017 at 16:28 Board Certified Radiologist. This report was verified electronically.
[2017-01-23 16:36] LABS: PERITONEAL EOS 2 %; PERITONEAL HISTIOCYTES 39 %; PERITONEAL LYMPHS 48 %; PERITONEAL MESOTHELIAL 1 %; PERITONEAL MONOS 5 %; PERITONEAL POLYS(SEGS) 5 %; PERITONEAL WBC 147 /MM3 (0-10)
[2017-01-24] VITALS: BP 98/63; PULSE 116; RESP 16; TEMP 97.7; O2SAT 95
[2017-01-24] MEDS: cefTRIAXone INJ 2,000 MG in SODIUM CHLORIDE 0.9% INJ 100 ML IV SCH ×3 (02:00→17:35)
[2017-01-24 04:00] VITALS: BP 98/65; PULSE 116; RESP 16; TEMP 96.3; O2SAT 97
[2017-01-24 07:50] VITALS: BP 105/59; PULSE 103; RESP 20; TEMP 96.1; O2SAT 99
--- NOTE | 2017-01-24 08:42 | HHI.PR ---
Subjective Remarks Patient feels improved after the paracenthesis yesterday . Asking me to to adjust hi s bed as he feels sob and uncomfortable. Bed adjusted. Patient denies fevr or chills. Eating better. Denies chest pain or pallitations. Less jaundice. Feesl very weak, can;t move in bed. Discussed at length regarding goal of care. Patient says he wants DNR and will talk with his family and decid regarding hospice. He and his family decided to go hospice. Objective Vitals Vital Signs Date Time Temp Pulse Resp B/P Pulse Ox O2 Delivery O2 Flow Rate FiO2 01/24/17 04:00 96.3 116 16 98/65 97 01/24/17 00:00 97.7 116 16 98/63 95 01/23/17 20:00 97.6 120 18 100/74 94 01/23/17 16:57 99 21 01/23/17 15:45 96.8 112 20 101/79 98 01/23/17 15:30 96.1 112 20 108/80 98 01/23/17 11:50 96.3 91 20 102/75 99 01/23/17 09:18 93 I/O 01/23/17 01/23/17 01/23/17 01/24/17 01/24/17 01/24/17 07:00 15:00 23:00 07:00 15:00 23:00 Intake Total 120 ml 0 ml 120 ml 480 ml Output Total 400 ml 100 ml Balance 120 ml -400 ml 20 ml 480 ml Intake Oral 120 ml 0 ml 120 ml 480 ml Output Urine Total 400 ml 100 ml # Voids 1 # Bowel Movements 0 Result Diagram: 01/23/17 0725 01/23/17 0725 Imaging Last Impressions Cyst Biopsy Asp-Paracentesis US 01/23/17 0000 Signed Impressions: Service Date/Time: Monday, January 23, 2017 12:49 - CONCLUSION: Uncomplicated ultrasound guided paracentesis. Ulisses Austin MD Abdomen/Pelvis CT 01/22/17 1511 Signed Impressions: Service Date/Time: Sunday, January 22, 2017 17:46 - CONCLUSION: Innumerable metastases in the liver. Abundant ascites. Suspicious soft tissue density mass in the region of the cecum Colton Stallings MD CT Angiography 01/22/17 0000 Signed Impressions: Service Date/Time: Sunday, January 22, 2017 17:50 - CONCLUSION: No evidence of pulmonary embolism Colton Stallings MD Objective Remarks GENERAL: Significantly cachectic, thin, chronically ill-appearing white male in no acute distress. Very weak. HEENT: PERRLA, EOMI. No scleral icterus or conjunctival pallor. No lid lag or facial droop. Bitemporal muscle waisting. CARDIOVASCULAR: Regular rate and rhythm. No obvious murmurs to auscultation. No chest tenderness to palpation. RESPIRATORY: No obvious rhonchi or wheezing. Clear to auscultation. Breath sounds equal bilaterally. GASTROINTESTINAL: Abdomen soft, generalized tenderness to palpation, ascites improved. BS normal. MUSCULOSKELETAL: Muscle waisting. Extremities without clubbing, cyanosis, or edema. No obvious deformities. NEUROLOGICAL: Awake, alert and oriented x4. No focal neurologic deficits. Moving both upper and lower extremities spontaneously. A/P Problem List: (1) SIRS (systemic inflammatory response syndrome) ICD Code: R65.10 Status: Acute (2) Intractable abdominal pain ICD Code: R10.9 Status: Acute (3) Colon cancer ICD Code: C18.9 Status: Acute (4) Ascites ICD Code: R18.8 Status: Acute (5) Hypoxia ICD Code: R09.02 Status: Acute (6) Hypercalcemia ICD Code: E83.52 Status: Acute (7) Cachexia ICD Code: R64 Status: Acute Assessment and Plan SIRS: WBC 16 w/ elevated neutrophil, HR 106, unclear etiology, concern for possible SBP w/ abundant ascites. Check Blood Cultures, start empiric Rocephin for possible SBP. Caution w/ IVF in light of ascites/liver mets. Colon CA: w/ Mets to Liver. Diagnosed Oct 2016, s/p Radiation yesterday w/ next session on Wednesday, following w/ doctors in [place]. Will likely need to hold off on further treatment for now in light of possible infection/SBP. Plan is to follow up w/ doctors as outpatient upon discharge. CT Abd/Pelvis w/ innumerable metastasis to liver, abundant ascites, suspicious soft tissue density mass in region of cecum, images reviewed by me. Ascites: Progressive. CT Abd/Pelvis w/ abundant ascites as above. Sister reports previous attempts at paracentesis have been unsuccessful as not enough to drain. Consult IR, S/P Diagnostic & Therapeutic Paracentesis for possible SBP , cultures, cytology, cell count. Results penfing Hypercalcemia: Ca 10.5, will obtain corrected Ca, IVF as needed, caution w/ ascites/liver dysfunction. Hypoxia: O2 sat 88% on arrival, currently 97% on RA. CTA Pulm negative for PE , images reviewed by me. Will monitor. DuoNeb prn for SOB. Cachexia: Severe Malnutrition. Decreased PO intake. Add ensure. Will consult Older Worker Specialist for further recommendations. DVT Prophylaxis: SCD/Teds. CM for d/c planning as needed. Discussed with the patient, nurse Code status: DNR Consult hospice Problem Qualifiers (1) Ascites: Qualified Code: R18.0 - Malignant ascites Kandis Vazquez MD January 24, 2017 08:42
--- NOTE | 2017-01-24 08:45 | PD.CONS ---
HPI History of Present Illness This is a 57 year old male with metastatic colon cancer that was diagnosed in October 2016. He presented to the ER due to intractable abdominal pain, increased abdominal distention, fatigue/malaise, and nausea/emesis. Patient is followed by Dr. Wheat ([place]). He had radiation therapy 01/21/17. The next session is due next week. Today patient states he continues to have abdominal pain, worse in right upper quadrant. +Nausea and states he had emesis yesterday. No appetite. Patient states he is in the process of getting established with Hospice. He states he has been too weak to communicate his medical desires, but today he feels a little more stronger and would like to talk more about his medical treatment. This morning he states to me that he does not think he wants to do any more radiation until he is "stronger." He stated he would like to go on Hospice and get "comfortable" and he wants to go home. (Abigail Barahona) PFSH Past Medical History Metastatic Colon Cancer Past Surgical History None (Abigail Barahona) Coded Allergies: No Known Allergies (Unverified , 01/22/17) Medications Current Medications Medications (Trade) Dose Ordered Sig/Nivia Route PRN Reason Start Time Stop Time Status Last Admin Dose Admin Ceftriaxone Sodium/Sodium Chloride (Rocephin Inj/NS Inj) 100 ml @ 200 mls/hr Q8H IV 01/23/17 02:00 01/24/17 02:00 Sodium Chloride (NS Flush) 2 ml UNSCH PRN IV FLUSH FLUSH AFTER USING IV ACCESS 01/22/17 19:30 Sodium Chloride (NS Flush) 2 ml BID IV FLUSH 01/22/17 21:00 01/23/17 21:00 Ondansetron HCl (Zofran Inj) 4 mg Q6H PRN IVP NAUSEA OR VOMITING 01/22/17 19:30 01/23/17 03:43 Bisacodyl (Dulcolax Supp) 10 mg DAILY PRN RECTAL CONSTIPATION 01/22/17 19:30 Acetaminophen (Tylenol) 650 mg Q6H PRN PO FEVER 01/22/17 19:30 Oxycodone HCl (Roxicodone) 10 mg Q4H PRN PO PAIN SCALE 3 TO 5 01/22/17 19:30 Hydromorphone HCl (Dilaudid Pf Inj) 0.5 mg Q3H PRN IV Pain 6-10 01/22/17 22:30 01/23/17 17:12 Family History No pertinent family history. Social History Tobacco: Denies ETOH: Denies Illicit Drugs: Denies (Abigail Barahona) Review of Systems Constitutional: COMPLAINS OF: Fatigue, Change in appetite, DENIES: Diaphoretic episodes, Fever, Weight gain, Weight loss, Chills, Dizziness, Night Sweats Endocrine: DENIES: Polydipsia, Polyuria Eyes: DENIES: Blurred vision, Photosensitivity, Double Vision Ears, nose, mouth, throat: DENIES: Hearing loss, Vertigo, Oral lesions, Throat pain, Hoarseness Respiratory: DENIES: Cough, Wheezing, Hemoptysis, Sputum production, Shortness of breath Cardiovascular: DENIES: Chest pain, Palpitations, Syncope, Lower Extremity Edema, Orthopnea, Claudication Gastrointestinal: COMPLAINS OF: Abdominal pain, Nausea, Vomiting, Swelling of Abdomen, DENIES: Black stools, Bloody stools, Constipation, Diarrhea, Difficulty Swallowing, Anorexia, Odynophagia, Heartburn, Hematemesis Genitourinary: DENIES: Urinary frequency, Urinary incontinence, Urgency, Hematuria, Dysuria, Nocturia Musculoskeletal: DENIES: Joint pain, Muscle aches, Stiffness, Joint Swelling, Back pain, Neck pain Integumentary: DENIES: Abnormal pigmentation, Nail changes, Pruritus, Rash, Jaundice Hematologic/lymphatic: DENIES: Bruising, Lymphadenopathy Immunologic/allergic: DENIES: Eczema, Urticaria Neurologic: DENIES: Abnormal gait, Headache, Localized weakness, Paresthesias Psychiatric: DENIES: Anxiety, Confusion, Mood changes, Depression, Agitation, Suicidal Ideation (Abigail Barahona) GI Exam Vitals I&O Vital Signs Date Time Temp Pulse Resp B/P Pulse Ox O2 Delivery O2 Flow Rate FiO2 01/24/17 04:00 96.3 116 16 98/65 97 01/24/17 00:00 97.7 116 16 98/63 95 01/23/17 20:00 97.6 120 18 100/74 94 01/23/17 16:57 99 21 01/23/17 15:45 96.8 112 20 101/79 98 01/23/17 15:30 96.1 112 20 108/80 98 01/23/17 11:50 96.3 91 20 102/75 99 01/23/17 09:18 93 I/O 01/23/17 01/23/17 01/23/17 01/24/17 01/24/17 01/24/17 07:00 15:00 23:00 07:00 15:00 23:00 Intake Total 120 ml 0 ml 120 ml 480 ml Output Total 400 ml 100 ml Balance 120 ml -400 ml 20 ml 480 ml Intake Oral 120 ml 0 ml 120 ml 480 ml Output Urine Total 400 ml 100 ml # Voids 1 # Bowel Movements 0 Imaging Last Impressions Cyst Biopsy Asp-Paracentesis US 01/23/17 0000 Signed Impressions: Service Date/Time: Monday, January 23, 2017 12:49 - CONCLUSION: Uncomplicated ultrasound guided paracentesis. Ulisses Austin MD Abdomen/Pelvis CT 01/22/17 1511 Signed Impressions: Service Date/Time: Sunday, January 22, 2017 17:46 - CONCLUSION: Innumerable metastases in the liver. Abundant ascites. Suspicious soft tissue density mass in the region of the cecum Colton Stallings MD CT Angiography 01/22/17 0000 Signed Impressions: Service Date/Time: Sunday, January 22, 2017 17:50 - CONCLUSION: No evidence of pulmonary embolism Colton Stallings MD Laboratory Test 01/23/17 13:45 Peritoneal Fluid WBC 147 /MM3 Peritoneal Fluid RBC 165 /MM3 Peritoneal Fluid Neutrophils 5 % Peritoneal Fluid Lymphocytes 48 % Peritoneal Fluid Monocytes 5 % Peritoneal Fluid Eosinophils 2 % Peritoneal Fluid Mesothelial 1 % Cells Peritoneal Fluid Histiocytes 39 % Date/Time Procedure Status Source Growth 01/23/17 13:45 Gram Stain - Final Resulted Fluid Peritoneal Fluid 01/23/17 13:45 Body Fluid Culture Resulted Fluid Peritoneal Fluid Pending Physical Examination HEENT:PERRLA; normocephalic; atraumatic; no jaundice. NECK: Neck is supple, no JVD, no lymphadenopathy. CHEST: CTA CARDIAC: RRR ABDOMEN: Soft, diffuse tenderness on palpation; ascites; bowel sounds x 4 quadrants. Enlarged hard liver. EXTREMITIES: No clubbing, cyanosis, or edema. SKIN: Normal; no rash; + jaundice. WASTE/MATERIALS EXCHANGE SPECIALIST: No focal deficits; A & O x3. (Abigail Barahona) Assessment and Plan Plan ASSESSMENT: -Colon Cancer, with mets to liver. Patient diagnosed in October 2016. Followed by Dr. Wheat ([place]). S/P radiation last week, next session due Wednesday. Patient stated today that he does not want to have another radiation session until he feels "stronger." He would like to go on Hospice at this time and he is asking to go home today. Abdomen/Pelvis CT 01/22/17-- Innumerable metastases in the liver. Abundant ascites. Suspicious soft tissue density mass in the region of the cecum. AST 161, Alk Phos 862 -Ascites, Abdomen CT, as above. S/P Paracentesis on 01/23. Cyst Biopsy Asp- Paracentesis US 01/23/17-- Uncomplicated ultrasound guided paracentesis. -SIRS, per primary. WBC 16 with elevated neutrophil, HR 106 on admission. 01/23 WBC 15.8, Neutrophil 85. Tachycardia. Peritoneal WBC 147, RBC 165. Peritoneal fluid culture pending. -Cachexia, per primary. Dietary consulted. Patient states he has decreased appetite. PLAN: -Hospice consult -Antiemetics prn nausea -Monitor labs -Peritoneal fluid culture pending -Supportive care -Further recommendations to follow based on the results of above Patient was seen and examined by myself and Dr. Estes and this note is written on her behalf. (Abigail Barahona) Physician Comments seen, examined very weak, jaundiced , enlarged, hard liver poor prognosis ok to dc home from gi point agree with hospice fu cytology (Venessa Estes MD) Abigail Barahona January 24, 2017 08:45 Venessa Estes MD January 24, 2017 11:44
[2017-01-24 08:52] VITALS: O2SAT 97
[2017-01-24] MEDS: SODIUM CHLORIDE 0.9% FLUSH 10 ML FLUSH IV FLUSH SCH (09:52)
[2017-01-24 11:03] LABS: AUTOMATED NEUTROPHIL # 14.4 TH/MM3 (1.8-7.7); BASOPHIL # 0.1 TH/MM3 (0-0.2); BASOPHIL % 0.5 % (0.0-2.0); EOSINOPHIL % 0.2 % (0.0-4.0); HEMATOCRIT 37.2 % (39.0-51.0); HEMO FLAGS DIFF FINAL; LYMPH % 21.3 % (9.0-44.0); LYMPHOCYTE # 4.2 TH/MM3 (1.0-4.8); MEAN CELL VOLUME 92.8 FL (80.0-100.0); MEAN CORPUSCULAR HEMOGLOBIN 29.9 PG (27.0-34.0); MEAN CORPUSCULAR HGB CONC 32.2 % (32.0-36.0); MONO % 5.3 % (0.0-8.0); NEUT % 72.7 % (16.0-70.0); PLATELET COUNT 348 TH/MM3 (150-450); RED CELL DISTRIBUTION WIDTH 22.8 % (11.6-17.2); WHITE BLOOD COUNT 19.8 TH/MM3 (4.0-11.0)
[2017-01-24 11:49] LABS: ALKALINE PHOSPHATASE 860 U/L (45-117); ALT (GPT) 268 U/L (12-78); ANION GAP 14 MEQ/L (5-15); AST (GOT) 1076 U/L (15-37); BICARBONATE 23.8 MEQ/L (21.0-32.0); BLOOD UREA NITROGEN 25 MG/DL (7-18); CHLORIDE 95 MEQ/L (98-107); GLOMERULAR FILTRATION RATE 83 ML/MIN (>89); MAGNESIUM 2.2 MG/DL (1.5-2.5); POTASSIUM 4.4 MEQ/L (3.5-5.1); SODIUM (NA) 133 MEQ/L (136-145); TOTAL BILIRUBIN ADULT 4.5 MG/DL (0.2-1.0)
[2017-01-24 11:50] VITALS: BP 99/62; PULSE 103; RESP 20; TEMP 97.1; O2SAT 96
[2017-01-24 15:50] VITALS: BP 110/72; PULSE 108; RESP 20; TEMP 97.1; O2SAT 93
--- NOTE | 2017-01-24 16:20 | HHI.DS ---
Discharge Summary Admission Date January 22, 2017 at 19:17 Discharge Date: January 24, 2017 Admitting Diagnosis ascites (1) SIRS (systemic inflammatory response syndrome) ICD Code: R65.10 Diagnosis: Principal (2) Intractable abdominal pain ICD Code: R10.9 Diagnosis: Principal (3) Colon cancer ICD Code: C18.9 Diagnosis: Secondary (4) Ascites ICD Code: R18.8 Diagnosis: Secondary (5) Hypoxia ICD Code: R09.02 Diagnosis: Secondary (6) Hypercalcemia ICD Code: E83.52 Diagnosis: Secondary (7) Cachexia ICD Code: R64 Diagnosis: Secondary Procedures paracentesis Brief History - From Admission This is a 57-year-old male with recently diagnosed Metastatic Colon CA who presented to the ER w/ complaints of severe abdominal pain, worsening distention and nausea/vomiting. Much of history obtained from Sister as pt too weak to speak. Sister states pt diagnosed in October 2016, has been following w/ Dr. Wheat in [place], s/p Radiation yesterday w/ next session on Wednesday, however presented to [place] secondary to severe pain and intractable nausea/ vomiting. Also reports difficulty taking PO w/ significant amount of weight loss. On arrival, BP 103/72, HR 106, O2 sat 88% on RA, Afebrile. WBC 16.2, elevated neutrophil count. Chemistry essentially unremarkable. Calcium 10.5. ALP 1039. INR 1.3. CTA Pulm negative for PE. CT Abd/Pelvis with innumerable metastasis in the liver, abundant ascites, suspicious soft tissue density mass in the region of the cecum. S/p analgesics and antiemetics in ER. CBC/BMP: 01/24/17 1019 01/24/17 1019 Significant Findings Laboratory Tests Test 01/22/17 01/23/17 01/23/17 01/24/17 15:25 07:25 13:45 10:19 White Blood Count 16.2 TH/MM3 15.8 TH/MM3 19.8 TH/MM3 (4.0-11.0) (4.0-11.0) (4.0-11.0) Red Cell Distribution Width 22.6 % 21.8 % 22.8 % (11.6-17.2) (11.6-17.2) (11.6-17.2) Platelet Count 475 TH/MM3 (150-450) Neutrophils (%) (Auto) 86.0 % 85.0 % 72.7 % (16.0-70.0) (16.0-70.0) (16.0-70.0) Lymphocytes (%) (Auto) 7.4 % 6.8 % (9.0-44.0) (9.0-44.0) Neutrophils # (Auto) 14.0 TH/MM3 13.4 TH/MM3 14.4 TH/MM3 (1.8-7.7) (1.8-7.7) (1.8-7.7) Prothrombin Time 14.6 SEC 15.3 SEC (9.8-11.6) (9.8-11.6) Sodium Level 132 MEQ/L 133 MEQ/L (136-145) (136-145) Chloride Level 92 MEQ/L 95 MEQ/L (98-107) (98-107) Calcium Level 10.5 MG/DL (8.5-10.1) Total Bilirubin 5.1 MG/DL 4.0 MG/DL 4.5 MG/DL (0.2-1.0) (0.2-1.0) (0.2-1.0) Aspartate Amino Transf 184 U/L (15-37) 161 U/L (15-37) 1076 U/L (AST/SGOT) (15-37) Alkaline Phosphatase 1039 U/L 862 U/L 860 U/L (45-117) (45-117) (45-117) Albumin 2.0 GM/DL 1.6 GM/DL 1.6 GM/DL (3.4-5.0) (3.4-5.0) (3.4-5.0) Red Blood Count 3.59 MIL/MM3 4.00 MIL/MM3 (4.50-5.90) (4.50-5.90) Hemoglobin 10.9 GM/DL 12.0 GM/DL (13.0-17.0) (13.0-17.0) Hematocrit 32.6 % 37.2 % (39.0-51.0) (39.0-51.0) Monocytes # (Auto) 1.1 TH/MM3 1.0 TH/MM3 (0-0.9) (0-0.9) Creatinine 0.52 MG/DL (0.60-1.30) Protein Corrected Calcium 10.3 MG/DL (8.5-10.1) Total Protein 6.0 GM/DL (6.4-8.2) Peritoneal Fluid WBC 147 /MM3 (0-10) Peritoneal Fluid RBC 165 /MM3 (0-0) Blood Urea Nitrogen 25 MG/DL (7-18) Estimat Glomerular Filtration 83 ML/MIN (>89) Rate Random Glucose 114 MG/DL (74-106) Alanine Aminotransferase 268 U/L (12-78) (ALT/SGPT) Imaging Last Impressions Cyst Biopsy Asp-Paracentesis US 01/23/17 0000 Signed Impressions: Service Date/Time: Monday, January 23, 2017 12:49 - CONCLUSION: Uncomplicated ultrasound guided paracentesis. Ulisses Austin MD Abdomen/Pelvis CT 01/22/17 1511 Signed Impressions: Service Date/Time: Sunday, January 22, 2017 17:46 - CONCLUSION: Innumerable metastases in the liver. Abundant ascites. Suspicious soft tissue density mass in the region of the cecum Colton Stallings MD CT Angiography 01/22/17 0000 Signed Impressions: Service Date/Time: Sunday, January 22, 2017 17:50 - CONCLUSION: No evidence of pulmonary embolism Colton Stallings MD PE at Discharge GENERAL: Significantly cachectic, thin, chronically ill-appearing white male in no acute distress. Very weak. HEENT: PERRLA, EOMI. No scleral icterus or conjunctival pallor. No lid lag or facial droop. Bitemporal muscle waisting. CARDIOVASCULAR: Regular rate and rhythm. No obvious murmurs to auscultation. No chest tenderness to palpation. RESPIRATORY: No obvious rhonchi or wheezing. Clear to auscultation. Breath sounds equal bilaterally. GASTROINTESTINAL: Abdomen soft, generalized tenderness to palpation, ascites improved. BS normal. MUSCULOSKELETAL: Muscle waisting. Extremities without clubbing, cyanosis, or edema. No obvious deformities. NEUROLOGICAL: Awake, alert and oriented x4. No focal neurologic deficits. Moving both upper and lower extremities spontaneously. Hospital Course SIRS: WBC 16 w/ elevated neutrophil, HR 106, unclear etiology, concern for possible SBP w/ abundant ascites. Check Blood Cultures, start empiric Rocephin for possible SBP. Caution w/ IVF in light of ascites/liver mets. Colon CA: w/ Mets to Liver. Diagnosed Oct 2016, s/p Radiation yesterday w/ next session on Wednesday, following w/ doctors in [place]. Will likely need to hold off on further treatment for now in light of possible infection/SBP. Plan is to follow up w/ doctors as outpatient upon discharge. CT Abd/Pelvis w/ innumerable metastasis to liver, abundant ascites, suspicious soft tissue density mass in region of cecum, images reviewed by me. Ascites: Progressive. CT Abd/Pelvis w/ abundant ascites as above. Sister reports previous attempts at paracentesis have been unsuccessful as not enough to drain. Consult IR, S/P Diagnostic & Therapeutic Paracentesis for possible SBP , cultures, cytology, cell count. Results penfing Hypercalcemia: Ca 10.5, will obtain corrected Ca, IVF as needed, caution w/ ascites/liver dysfunction. Hypoxia: O2 sat 88% on arrival, currently 97% on RA. CTA Pulm negative for PE , images reviewed by me. Will monitor. DuoNeb prn for SOB. Cachexia: Severe Malnutrition. Decreased PO intake. Add ensure. Will consult Coal Handling Supervisor for further recommendations. DVT Prophylaxis: SCD/Teds. CM for d/c planning as needed. Discussed with the patient, nurse Code status: DNR Consult hospice Seen by Hospice service . Patient decided to go to hospice DC plan DC to hospice in deteriorating condition. Diet as tolerated Activity ad ;ib Meds per hospice Pt Condition on Discharge: Deteriorating Discharge Disposition: Hospice/Med Facility Discharge Time: > 30 minutes Discharge Instructions DIET: Follow Instructions for: As Tolerated, No Restrictions Activities you can perform: Regular-No Restrictions Continued Medications: Furosemide (Furosemide) 40 Mg Tab 40 MG PO DAILY #30 Ref 0 TAB Hydrocodone-Acetaminophen (Lortab) 5-325 Mg Tab 1-2 TAB PO Q6H PRN PAIN #30 Ref 0 TAB Potassium Chloride ER (Potassium Chloride ER) 10 Meq Tab 20 MEQ PO DAILY Electrolyte Replacement #60 Ref 0 TAB Tramadol (Tramadol) 50 Mg Tab 50 MG PO Q6H PRN PAIN #20 Ref 0 TAB Kandis Vazquez MD January 24, 2017 16:20
[2017-01-24] MEDS: ONDANSETRON HCL 4 MG/2 ML VIAL IVP PRN (18:28)
[2017-01-24] MEDS: HYDROmorphone HCL PF 1 MG/ML VIAL IV PRN (18:28)
== END 2017-01-24 18:51 | disposition hospice, inpatient (51) | DRG 371 ==
LOC: NEPE 14:16 → NEDA 19:17 → OBSVTOIN 19:17 → HOCB 21:20
PROVIDERS: ADMIT Hospitalist; ATTEND Hospitalist
PROC: 0W9G3ZX Drainage of Peritoneal Cavity, Percutaneous Approach, Diagnostic (ICD-10-PCS; principal; 2017-01-23)
DX: K65.2 Spontaneous bacterial peritonitis (principal); E43 Unspecified severe protein-calorie malnutrition; R18.0 Malignant ascites; R64 Cachexia; C78.7 Secondary malignant neoplasm of liver and intrahepatic bile duct; R65.10 Systemic inflammatory response syndrome (SIRS) of non-infectious origin without acute organ dysfunction; C18.9 Malignant neoplasm of colon, unspecified; Z68.1 Body mass index [BMI] 19.9 or less, adult; E83.52 Hypercalcemia; R53.1 Weakness; R09.02 Hypoxemia; G89.3 Neoplasm related pain (acute) (chronic); Z51.5 Encounter for palliative care; Z66 Do not resuscitate
CPT/HCPCS: 49083; 71275; 74177; 80053; 83605; 83735; 84155; 85025; 85610; 85730; 87070; 87205; 89051; 96374; 96375; C1729; J0696; J1170; J2270; J2405; J7030; J7040; Q9967